=== PATIENT | female | born 1970 | race Caucasian/White ===

== ENCOUNTER → 2020-02-13 11:48 | Outpatient (CLI) | payer BC, SELFPAY ==
--- NOTE | ~2020-02-13 | MM_ITS ---
EXAMINATION: MM screening [facility] BI [facility] [place] HISTORY: Screening TECHNIQUE: Craniocaudal and mediolateral oblique 3-D tomosynthesis images were obtained and synthetic 2-D images were generated. CAD analysis was submitted and interpreted. COMPARISON: Comparison to multiple prior studies sequentially, with oldest reviewed study dated 01/28. BREAST PARENCHYMAL COMPOSITION: There are scattered areas of fibroglandular density. FINDINGS: There is no evidence of suspicious mass, calcification, or architectural distortion to sugg est malignancy in either breast. There has been no suspicious interval change. IMPRESSION: 1. No mammographic evidence of malignancy. 2. Recommend routine screening mammography in one year. BI-RADS Category 1: Negative Reviewed, dictated and finalized at location A.
== END ==
PROVIDERS: PCP Nurse Practitioner Family; Visit Provider Nurse Practitioner
DX: Z12.31 Encounter for screening mammogram for malignant neoplasm of breast (principal)
CPT/HCPCS: 77063; 77067

== ENCOUNTER → 2021-03-18 17:20 | Outpatient (CLI) | payer BC, SELFPAY ==
--- NOTE | ~2021-03-18 | MM_ITS ---
EXAMINATION: MM screening [facility] [place] HISTORY: Screening mammogram TECHNIQUE: Craniocaudal and mediolateral oblique 3-D tomosynthesis images were obtained and synthetic 2-D images were generated. CAD analysis was submitted and interpreted. COMPARISON: 02/13/2020, 08/22/2018, 08/16/2017 BREAST PARENCHYMAL COMPOSITION: There are scattered areas of fibroglandular density. FINDINGS: There is no evidence of suspicious mass, calcification, or architectural distortion to sugg est malignancy in either breast. There has been no suspicious interval change. IMPRESSION: 1. No mammographic evidence of malignancy. 2. Recommend routine screening mammography in one year. BI-RADS Category 1: Negative Reviewed, dictated and finalized at location A. SH SANDER
== END ==
PROVIDERS: PCP Nurse Practitioner Family; Visit Provider Nurse Practitioner
DX: Z12.31 Encounter for screening mammogram for malignant neoplasm of breast (principal)
CPT/HCPCS: 77063; 77067

== ENCOUNTER → 2021-12-21 14:01 | Outpatient (CLI) | payer BC, SELFPAY ==
--- NOTE | ~2021-12-21 | XR_ITS ---
EXAMINATION: XR knee LT min 4V, XR knee RT min 4V DATE: 12/21/2021 14:18 INDICATION: Bilateral knee pain TECHNIQUE: 1. AP, lateral and sunrise views of the left knee were obtained. 2. AP, lateral and sunrise views of the right knee were obtained. COMPARISON: None. FINDINGS: No fractures. Relatively symmetric advanced medial compartment predominant osteoarthritis at the bila teral knees with severe joint space narrowing and remodeling of the articular surfaces at the medial compartments of both knees. This results in relative symmetric mild lateral subluxation as well as 10 degrees genu valgus. There is additional lateral sided predominant joint space narrowing at the bila teral patellofemoral compartments and moderate size marginal osteophytes in all 3 compartments of bot h knees. No knee joint effusions. Subcutaneous varicosities along the medial aspect of the bilateral distal thighs to the proximal calves. IMPRESSION: 1. L3 symmetric advanced medial compartment predominant tricompartmental osteoarthritis at both knees . Reviewed, dictated and finalized at location A. IMPRESSION: 1. L3 symmetric advanced medial compartment predominant tricompartmental osteoa rthritis at both knees.
== END ==
PROVIDERS: PCP Nurse Practitioner Family; Visit Provider Nurse Practitioner Family
DX: M25.561 Pain in right knee (principal); M25.562 Pain in left knee
CPT/HCPCS: 73564

== ENCOUNTER → 2022-02-17 08:15 | Outpatient (CLI) | payer BC, SELFPAY ==
--- NOTE | ~2022-02-17 | MMUS_ITS ---
EXAMINATION: MM diagnostic [facility] [place], US breast RT limited HISTORY: Palpable right breast lump TECHNIQUE: Additional 3-D tomosynthesis images of the right breast were performed and synthetic 2-D i mages were generated. CAD analysis was submitted and interpreted. High resolution Limited right breas t ultrasound was performed. COMPARISON: 06/26/2015 BREAST PARENCHYMAL COMPOSITION: Breast composed of scattered areas of fibroglandular density FINDINGS: MAMMOGRAPHIC FINDINGS: There is no mammographic evidence for malignancy in the left breast which is stable. There is a new f ocal asymmetry in the upper outer quadrant of the right breast which is obscured by fibroglandular ti ssue. ULTRASOUND: Limited right breast ultrasound: At 12:00, 7 cm from the nipple there is a 4 mm cyst. There is also a 6 mm cyst at this location. No suspicious masses to suggest malignancy. IMPRESSION: 1. No evidence for malignancy in either breast. Benign findings. 2. Routine yearly screening mammogram and regular clinical breast examination are recommended. BI-RADS Category 2: Benign finding(s). Reviewed, dictated and finalized at location A. IMPRESSION: 1. No evidence for malignancy in either breast. Benign findings. 2. Routine yearly screening mammogram and regular clinical breast examination a re recommended. BI-RADS Category 2: Benign finding(s).
== END ==
PROVIDERS: PCP Nurse Practitioner Family; Visit Provider Advanced Practice Midwife
DX: N63.10 Unspecified lump in the right breast, unspecified quadrant (principal)
CPT/HCPCS: 76642; 77062; 77066; G0279

== ENCOUNTER 2022-09-11 01:16 | Day surgery (SDC) | payer BC, SELFPAY ==
[2022-08-29 15:34] VITALS: BMI 50.3
--- NOTE | 2022-09-09 10:48 | PM.HPGS ---
History of Present Illness History of Present Illness Consent: Risks, benefits, and alternatives have been discussed and questions answered. Patient agrees to proceed with procedure. Chief complaint: hx of colon polyps Narrative: Denisha Bailey is a 52 year old female Referred for colon cancer screening.she has hx of polyps. Review of Systems Review of Systems: All systems reviewed & are unremarkable except as noted in HPI and below PMFSH Past Medical History Medical History Diabetes mellitus HTN (hypertension) Surgical History Surgical History H/O removal of cyst Family History Family History Mother Cerebrovascular accident Family history of diabetes mellitus in first degree relative Family history of seizure disorder Father Family history of kidney disease Family history of diabetes mellitus in first degree relative Family history of heart disease in male family member before age 55 Social History Social History Smoking status: Never smoker Alcohol intake: current Alcohol use details: occasional Substance use: never Substance use type: does not use Living arrangements: alone Gender identity (if verbalized by the patient): Female Spiritual care concerns: No Meds Home Medications and Allergies Home Medications Medication Instructions Recorded Confirmed Type cholecalciferol (vitamin D3) 10 400 unit PO DAILY #60 caps 03/26/19 08/29/22 Rx mcg (400 unit) capsule insulin glargine 100 unit/mL (3 15 unit (0.15 mL) subcut DAILY #15 04/09/19 08/29/22 Rx mL) subcutaneous pen (Lantus mL Solostar U-100 Insulin) pen needle, diabetic 31 gauge x #50 ea 04/09/19 05/12/19 Rx 1/4 (Easy Comfort Pen [place]) atorvastatin 40 mg tablet See Rx Instructions .Route 11/03/19 08/29/22 Rx .COMPLEX ##30 glimepiride 4 mg tablet See Rx Instructions .Route 11/03/19 08/29/22 Rx .COMPLEX ##60 lisinopril 20 mg tablet 20 mg PO DAILY #90 tabs 01/16/20 08/29/22 Rx dulaglutide 4.5 mg/0.5 mL 4.5 mg subcut WEEKLY 08/29/22 08/29/22 History subcutaneous pen injector (Trulicity) meloxicam 15 mg tablet 15 mg PO DAILY 08/29/22 08/29/22 History metformin 500 mg tablet,extended 500 mg PO BID 08/29/22 08/29/22 History release 24 hr paroxetine HCl 10 mg tablet 10 mg PO DAILY 08/29/22 08/29/22 History Allergies Allergy/AdvReac Type Severity Reaction Status Date / Time cefaclor Allergy Unknown Unknown Verified 09/11/22 07:43 Penicillins Allergy Unknown Unknown Verified 09/11/22 07:43 Exam Resp: Auscultation: clear to auscultation bilaterally Cardio: Rate: regular rate Rhythm: regular rhythm GI: GI Palp: Yes Soft to palpation and No Tenderness to palpation present (GI) Assessment and Plan Assessment and plan (1) Colon cancer screening: Code(s): Z12.11 - Encounter for screening for malignant neoplasm of colon Status: Resolved Assessment and Plan: Colonoscopy with possible biopsy or polypectomy or cautery or injection of substances.
[2022-09-11 07:44] VITALS: BP 102/73; PULSE 92; RESP 18; TEMP 36.1; O2SAT 97
[2022-09-11] MEDS: LACTATED RINGERS 1,000 ML 150 ML IV CONT (08:02)
[2022-09-11 08:03] LABS: Glucose Point of Care 163 mg/dl (65-105)
--- NOTE | 2022-09-11 08:56 | WPDANESEPPF ---
Anes - Initial Pre Proc Eval Procedure: Operation Date: 09/11/22 09:00 Proposed Procedures p Colonoscopy - Devang Dubose MD Date/Time: 09/11/22 08:56 Surgeon: Devang Dubose MD Pre Op Diagnosis: hx of colon polyps Patient Data Age: 52 Gender: F Height: 1.57 m Weight: 114.8 kg Last Vital Signs Temp 97 F L 09/11/22 07:44 Pulse 92 09/11/22 07:44 Resp 18 09/11/22 07:44 BP 102/73 09/11/22 07:44 Pulse Ox 97 09/11/22 07:44 O2 Del Method Room Air 09/11/22 07:44 Allergies Allergy/AdvReac Type Severity Reaction Status Date / Time cefaclor Allergy Unknown Unknown Verified 09/11/22 07:43 Penicillins Allergy Unknown Unknown Verified 09/11/22 07:43 Home Medications Medication Instructions Recorded Confirmed Type cholecalciferol (vitamin D3) 10 400 unit PO DAILY #60 caps 03/26/19 08/29/22 Rx mcg (400 unit) capsule insulin glargine 100 unit/mL (3 15 unit (0.15 mL) subcut DAILY #15 04/09/19 08/29/22 Rx mL) subcutaneous pen (Lantus mL Solostar U-100 Insulin) pen needle, diabetic 31 gauge x #50 ea 04/09/19 05/12/19 Rx 1/4 (Easy Comfort Pen [place]) atorvastatin 40 mg tablet See Rx Instructions .Route 11/03/19 08/29/22 Rx .COMPLEX ##30 glimepiride 4 mg tablet See Rx Instructions .Route 11/03/19 08/29/22 Rx .COMPLEX ##60 lisinopril 20 mg tablet 20 mg PO DAILY #90 tabs 01/16/20 08/29/22 Rx dulaglutide 4.5 mg/0.5 mL 4.5 mg subcut WEEKLY 08/29/22 08/29/22 History subcutaneous pen injector (Trulicity) meloxicam 15 mg tablet 15 mg PO DAILY 08/29/22 08/29/22 History metformin 500 mg tablet,extended 500 mg PO BID 08/29/22 08/29/22 History release 24 hr paroxetine HCl 10 mg tablet 10 mg PO DAILY 08/29/22 08/29/22 History Laboratory Tests 09/11/22 08:01 POC Capillary Glucose 163 H mg/dl (65-105) Patient hx anesthesia problems: none Family hx anesthesia problems: none Results Review: All pre-operative results and documents have been reviewed as part of the pre-operative evaluation. [facility] Past Medical History Medical History (Updated 05/13/19 @ 00:01 by Renetta Lorenzo) Diabetes mellitus HTN (hypertension) Surgical History Surgical History (Updated 05/12/19 @ 17:04 by Valarie Rose) H/O removal of cyst Family History Family History Mother Cerebrovascular accident Family history of diabetes mellitus in first degree relative Family history of seizure disorder Father Family history of kidney disease Family history of diabetes mellitus in first degree relative Family history of heart disease in male family member before age 55 Social History Social History Smoking status: Never smoker Alcohol intake: current Alcohol use details: occasional Substance use: never Substance use type: does not use Living arrangements: alone Gender identity (if verbalized by the patient): Female Spiritual care concerns: No Anes - Eval Final PreProcedure Day of Procedure 09/11/22 08:56 Patient weight: morbidly obese Heart: regular rate and rhythm Lungs: clear to auscultation Airway: Mallampati scale class II Neurological: alert and oriented Last oral intake: >/= 8 hours ASA classification: III Emergent: no Anesthetic plan: proceed Anesthesia type and monitoring: general GIVS and standard monitoring Results Review: All pre-operative results and documents have been reviewed as part of the pre-operative evaluation. Informed Consent: The patient's anesthetic plan and its attendant risks and benefits were discussed with the patient/family/POA. Questions were solicited and answers provided to the satisfaction of the patient/family/POA.
[2022-09-11 09:43] VITALS: BP 83/48; PULSE 89; RESP 28; O2SAT 96
[2022-09-11 09:51] LABS: Glucose Point of Care 136 mg/dl (65-105)
[2022-09-11 09:53] VITALS: BP 81/43; PULSE 85; RESP 26; O2SAT 98
[2022-09-11 10:03] VITALS: BP 119/67; PULSE 79; RESP 18; O2SAT 99
== END 2022-09-11 10:10 | disposition home or self-care (01) ==
PROVIDERS: PCP Nurse Practitioner Family; Visit Provider Internal Medicine Gastroenterology
PROC: 0DJD8ZZ Inspection of Lower Intestinal Tract, Via Natural or Artificial Opening Endoscopic (ICD-10-PCS; CPT 45378; principal; 2022-09-11 09:00)
DX: Z12.11 Encounter for screening for malignant neoplasm of colon (principal); Z86.010 Personal history of colon polyps; E11.9 Type 2 diabetes mellitus without complications; I10 Essential (primary) hypertension; Z79.4 Long term (current) use of insulin; Z79.84 Long term (current) use of oral hypoglycemic drugs; Z79.899 Other long term (current) drug therapy; E66.01 Morbid (severe) obesity due to excess calories; Z68.42 Body mass index [BMI] 45.0-49.9, adult
CPT/HCPCS: 45378; 82948; J2704; J7120

== ENCOUNTER → 2023-04-20 09:55 | Outpatient (CLI) | payer BC, SELFPAY ==
--- NOTE | ~2023-04-20 | MM_ITS ---
EXAMINATION: MM screening [facility] [place] HISTORY: Screening TECHNIQUE: Craniocaudal and mediolateral oblique 3-D tomosynthesis images were obtained and synthetic 2-D images were generated. CAD analysis was submitted and interpreted. COMPARISON: Comparison to multiple prior studies sequentially, with oldest reviewed study dated 08/22. BREAST PARENCHYMAL COMPOSITION: There are scattered areas of fibroglandular density. FINDINGS: There is no evidence of suspicious mass, calcification, or architectural distortion to sugg est malignancy in either breast. There has been no suspicious interval change. IMPRESSION: 1. No mammographic evidence of malignancy. 2. Recommend routine screening mammography in one year. BI-RADS Category 1: Negative Reviewed, dictated and finalized at location A. ICAL DETECTION EXPERT
== END ==
PROVIDERS: PCP Nurse Practitioner; Visit Provider Nurse Practitioner
DX: Z12.31 Encounter for screening mammogram for malignant neoplasm of breast (principal)
CPT/HCPCS: 77063; 77067

== ENCOUNTER 2023-06-01 12:47 | Emergency (ER) | payer BC, SELFPAY ==
--- NOTE | 2023-06-01 13:02 | ED.GENADULT ---
HPI - General Adult General Chief complaint: Upper Respiratory Infection Stated complaint: vomiting,headache Time Seen by Provider: 06/01/23 13:02 Source: patient, RN notes reviewed and old records reviewed Mode of arrival: ambulatory Limitations: no limitations History of Present Illness HPI narrative: 53-year-old female presents to the [facility] with complaints of last , Sunday and Sunday started with cough and congestion. States that she felt better Sunday through , last night started with generalized not feeling well. Patient states that she woke up this morning with nausea, vomiting, headache. States that it feels like she is in a tunnel. States that she was unable to get out of bed this morning due to body aches, coughing, vomiting Has not checked her blood sugar States that she is unable to keep any fluids down Here she has a low-grade fever and is tachycardic Treatments prior to arrival: other (Sudafed) Related Data Home Medications Medication Instructions Recorded Confirmed meloxicam 15 mg tablet 15 mg PO DAILY 08/29/22 08/29/22 metformin 500 mg tablet,extended 500 mg PO BID 08/29/22 08/29/22 release 24 hr paroxetine HCl 10 mg tablet 10 mg PO DAILY 08/29/22 08/29/22 semaglutide 2 mg/dose (8 mg/3 mL) mg subcut 06/01/23 subcutaneous pen injector (Ozempic) Allergies Allergy/AdvReac Type Severity Reaction Status Date / Time cefaclor Allergy Unknown Unknown Verified 06/01/23 13:04 Penicillins Allergy Unknown Unknown Verified 06/01/23 13:04 Review of Systems Review of Systems: All systems reviewed & are unremarkable except as noted in HPI and below Constitutional: Constitutional: Reports as per HPI, Reports body ache(s), Reports fatigue, Reports fever(s) and Reports headache(s) Eyes: Eyes: Reports no additional eye complaints ENT: Reports as per HPI Cardiovascular: Cardiovascular: Reports no additional cardiovascular complaints, Denies chest pain and Denies dyspnea Respiratory: Respiratory: Reports as per HPI, Reports chest congestion, Reports cough and Denies dyspnea Gastrointestinal: Gastrointestinal: Reports no additional gastrointestinal complaints, Denies abdominal pain, Denies nausea and Denies vomiting Musculoskeletal: Musculoskeletal: Reports no additional musculoskeletal complaints Integumentary/Breasts: Skin/Breast: Reports system reviewed and no additional complaints, except as docu Neurologic: Reports system reviewed and no additional complaints, except as documented Psychiatric: Psychiatric: Reports no additional psychiatric complaints Allergic/Immunologic: Allergic/Immunologic: Reports no additional allergic/immunologic complaints [facility] Past Medical History Medical History (Updated 06/01/23 @ 13:26 by Gem Morgan APRN) Benign essential hypertension Depression Diabetes mellitus HTN (hypertension) Mixed hyperlipidemia Type 2 diabetes mellitus without complication, without long-term current use of insulin Surgical History Surgical History H/O removal of cyst Family History Family History Mother Cerebrovascular accident Family history of diabetes mellitus in first degree relative Family history of seizure disorder Father Family history of kidney disease Family history of diabetes mellitus in first degree relative Family history of heart disease in male family member before age 55 Social History Social History Smoking status: Never smoker Alcohol intake: current Alcohol use details: occasional Substance use: never Substance use type: does not use Living arrangements: alone Gender identity (if verbalized by the patient): Female Spiritual care concerns: No Comments At the time of my signature, I reviewed and agree with the nursing past medical, surgical, social, and fa
[2023-06-01 13:03] VITALS: BP 137/75; PULSE 132; RESP 20; TEMP 38.3; O2SAT 96
[2023-06-01 13:05] VITALS: BP 137/75; PULSE 132; RESP 20; TEMP 38.3; O2SAT 96
[2023-06-01 13:12] LABS: Glucose Point of Care 321 mg/dl (65-105)
== END 2023-06-01 13:16 | disposition short-term general hospital (02) ==
PROVIDERS: Emergency Provider Nurse Practitioner
DX: J10.1 Influenza due to other identified influenza virus with other respiratory manifestations (principal); E11.65 Type 2 diabetes mellitus with hyperglycemia; I10 Essential (primary) hypertension; E78.2 Mixed hyperlipidemia; Z20.822 Contact with and (suspected) exposure to COVID-19
CPT/HCPCS: 82948; 87426; 87804; 99213; G0463

== ENCOUNTER 2023-06-01 13:36 | Emergency (ER) | payer BC, SELFPAY ==
[2023-06-01 13:54] VITALS: BP 125/82; PULSE 130; RESP 20; TEMP 37.6; O2SAT 96
--- NOTE | 2023-06-01 13:58 | PC.NURSE ---
BS 290
[2023-06-01 14:01] LABS: Glucose Point of Care 290 mg/dl (65-105)
--- NOTE | 2023-06-01 20:07 | ECG_ITS ---
Measurements Intervals [place] Rate: 124 P: 52 NE: 166 QRS: 33 QRSD: 82 T: 30 QT: 316 QTc: 454 Interpretive Statements SINUS TACHYCARDIA Electronically Signed On 06-02-2023 12:29:29 PERIOPERATIVE ASSISTANT by Manpreet Avery M.D.
[2023-06-01 20:31] LABS: Fractional Inspired Oxygen 21 %; HCO3 VBG 22.8 mEq/l (24.0-30.0); PCO2 VBG 37.8 mmHg (42.0-48.0); PO2 VBG 30.5 mmHg (35.0-45.0); pH VBG 7.399 (7.300-7.400)
[2023-06-01 20:32] LABS: Device ROOM AIR
[2023-06-01 20:38] LABS: Basophils Absolute Auto 0.1 K/mm3 (0.0-0.1); Basophils Percent Auto 0.6 % (0.2-1.2); Eosinophils Percent Auto 0.3 % (0-4.4); Hematocrit 46.6 % (37.0-47.0); Immature Granulocyte Absolute 0.07 K/mm3 (0.00-0.031); Immature Granulocyte Percent A 0.6 % (0-0.5); Lymphocytes Absolute Auto 0.57 K/mm3 (0.9-3.2); Lymphocytes Percent Auto 4.8 % (18.3-44.2); Mean Corpuscular HGB Conc 32.2 g/dl (32-36); Mean Corpuscular Hemoglobin 30.8 pg (26-34); Mean Corpuscular Volume 95.7 fl (80-100); Mean Platelet Volume 9.6 fl (7.4-10.4); Monocytes Absolute Auto 0.9 K/mm3 (0.1-0.6); Monocytes Percent Auto 7.9 % (2.6-8.5); Neutrophils Absolute Auto 10.3 K/mm3 (1.3-6.7); Neutrophils Percent Auto 85.8 % (45.5-73.1); Platelet Count Result 210 k/mm3 (150-375); Red Blood Count 4.87 M/mm3 (4.2-5.4); Red Cell Distribution Width 12.2 % (11.5-14.5)
[2023-06-01 20:56] LABS: Alanine Aminotransferase 40 U/L (6-35); Albumin Level 4.2 g/dL (3.5-5.1); Alkaline Phosphatase 121 U/L (38-126); Anion Gap 12 mmol/L (8-16); Aspartate Amino Transferase 37 U/L (14-36); Bilirubin,Total 0.7 mg/dL (0.2-1.3); Blood Urea Nitrogen 17 mg/dL (7-17); Calcium 9.2 mg/dL (8.4-10.2); Carbon Dioxide 23 mmol/L (22-30); Chloride 100 mmol/L (98-107); Estimated CRCL calculation 74 ml/min; Estimated Glomerular Filt Rate > 60; Glucose 231 mg/dL (65-110); Potassium 3.9 mmol/L (3.4-5.0); Sodium 135 mmol/L (137-145)
--- NOTE | 2023-06-01 21:01 | ED.GENADULT ---
HPI - General Adult General Chief complaint: Nausea/Vomiting/Diarrhea Stated complaint: Flu positive, generalized weakness Time Seen by Provider: 06/01/23 19:38 Source: patient Mode of arrival: ambulatory Limitations: no limitations History of Present Illness HPI narrative: This is a 53-year-old female with PMH of insulin-dependent diabetes who presents to the ED with chief complaint of flu-like symptoms and N/V for the past couple of days. Reports being diagnosed with flu at urgent care but she has been very dehydrated with the episodes of vomiting. They were concerned because her sugars are near 300 and felt that she needed IV rehydration. patient states the nausea is somewhat improved and was able to drink some water while in the waiting room. Denies abdominal pain, urinary problems, chest pain, shortness of breath or cough. Related Data Home Medications Medication Instructions Recorded Confirmed meloxicam 15 mg tablet 15 mg PO DAILY 08/29/22 08/29/22 metformin 500 mg tablet,extended 500 mg PO BID 08/29/22 08/29/22 release 24 hr paroxetine HCl 10 mg tablet 10 mg PO DAILY 08/29/22 08/29/22 semaglutide 2 mg/dose (8 mg/3 mL) mg subcut 06/01/23 subcutaneous pen injector (Ozempic) Allergies Allergy/AdvReac Type Severity Reaction Status Date / Time cefaclor Allergy Unknown Unknown Verified 06/01/23 13:04 Penicillins Allergy Unknown Unknown Verified 06/01/23 13:04 Review of Systems Review of Systems: All systems as dictated in HPI [facility] Past Medical History Medical History (Updated 06/02/23 @ 00:01 by Renetta Lorenzo) Benign essential hypertension Depression Diabetes mellitus HTN (hypertension) Mixed hyperlipidemia Type 2 diabetes mellitus without complication, without long-term current use of insulin Surgical History Surgical History H/O removal of cyst Family History Family History Mother Cerebrovascular accident Family history of diabetes mellitus in first degree relative Family history of seizure disorder Father Family history of kidney disease Family history of diabetes mellitus in first degree relative Family history of heart disease in male family member before age 55 Social History Social History Smoking status: Never smoker Alcohol intake: current Alcohol use details: occasional Substance use: never Substance use type: does not use Living arrangements: alone Gender identity (if verbalized by the patient): Female Spiritual care concerns: No Exam Narrative: GENERAL: Well-appearing, well-nourished, and in no acute distress. HEAD: Normocephalic, atraumatic. EYES: PERRLA and EOMI. ENT: Nares clear, no rhinorrhea or epistaxis. Mucous membranes moist. Oropharynx without tonsillar hypertrophy exudate or other lesions. NECK: Supple. No adenopathy or masses. CHEST: No respiratory distress. Clear to auscultation. No wheezes rales or rhonchi HEART: Regular rate and rhythm. No murmur heard. Normal peripheral pulses. ABDOMEN: Soft, nontender, nondistended, normal active bowel sounds. MSK: Normal range of motion. No edema. SKIN: Warm, dry, no rash. NEURO: Alert and oriented x3. No focal deficits. PSYCH: Normal mood and affect. Course Vital Signs Vital signs: Vital Signs Temperature 99.6 F 06/01/23 13:54 Pulse Rate 130 H 06/01/23 13:54 Respiratory Rate 20 06/01/23 13:54 Blood Pressure 125/82 06/01/23 13:54 Pulse Oximetry 96 06/01/23 13:54 Oxygen Delivery Room Air 06/01/23 13:54 Temperature 98.1 F 06/01/23 22:02 Pulse Rate 75 06/01/23 22:02 Respiratory Rate 18 06/01/23 22:02 Blood Pressure 124/81 06/01/23 22:02 Pulse Oximetry 95 06/01/23 22:02 Oxygen Delivery Room Air 06/01/23 13:54 Medical Decision Making MDM Narrative Medical deci
[2023-06-01] MEDS: SODIUM CHLORIDE 0.9% IV 1,000 ML 999 ML IV CONT ×2 (21:02→21:03)
[2023-06-01] MEDS: ONDANSETRON INJ 4 MG/2 ML VIAL IV PUSH (21:03)
[2023-06-01 21:16] VITALS: BP 109/61; O2SAT 93
[2023-06-01 21:46] VITALS: BP 113/64; O2SAT 90
[2023-06-01] MEDS: KETOROLAC 30 MG/ML VIAL (*BKC) (21:50)
[2023-06-01 22:02] VITALS: BP 124/81; PULSE 75; RESP 18; TEMP 36.7; O2SAT 95
[2023-06-01 22:40] LABS: Glucose Point of Care 191 mg/dl (65-105)
== END 2023-06-01 22:55 | disposition home or self-care (01) ==
PROVIDERS: Emergency Provider Physician Assistant; PCP Nurse Practitioner Family
DX: J11.2 Influenza due to unidentified influenza virus with gastrointestinal manifestations (principal); I10 Essential (primary) hypertension; E11.9 Type 2 diabetes mellitus without complications; E78.5 Hyperlipidemia, unspecified; Z79.85 Long-term (current) use of injectable non-insulin antidiabetic drugs; Z79.84 Long term (current) use of oral hypoglycemic drugs; R00.0 Tachycardia, unspecified
CPT/HCPCS: 36415; 80053; 82010; 82803; 82948; 85025; 87426; 87804; 93005; 96361; 96374; 96375; 99284; J1885; J2405; J7030

== ENCOUNTER 2023-10-30 07:30 | Outpatient (RCR) | payer BC, SELFPAY ==
--- NOTE | 2023-10-11 08:10 | PTOPEVAL1 ---
Assessment and note entered by Francesco Basilio Evaluation Information Assessment Status Evaluation Diagnosis bilateral primary OA of bilateral knees, bilateral knee pain Onset 09/18/23 Subjective Information Pt. reports she has had years of knee pain. She reports that she recently saw the ortho who stated that she is likely a knee replacement candidate. She states that she is taking a trip in October and trying to hold off on any surgery. She reports that pain is only noticed with walking. She reports that she can only stand for a few minutes before having to sit due to her pain. She describes pain on the inside of the knee joints. She reports she cannot squat or kneel. 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 She reports that she did receive a cortisone injection 1 month ago, which did ease her pain. She states that stairs are difficult and has to navigate steps 1 at a time. She reports she is currently attempting weight lose. 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 She reports that her goal is to be able to walk for a longer duration so she can participate in recreational activities. Reported Pain Level Pain Score 7,5: Self Report Assessment PT Clinical Summary Pt. is a 53 year old female who enters the clinic with a diagnosis of bilateral knee pain. She presents with impaired gait, impaired flexibility, impaired bilateral knee ROM, functional decline and pain on this date. Continued skilled PT is indicated in order to improve these areas to allow the pt. to achieve her goal of being able to walk over a further distance. Plan of Care Interventions Electrical Stimulation,Gait Training,Hot Pack/Cold Pack,Manual Therapy,Neuro Re-education,Patient/ Caregiver Educati,Therapeutic Activities, Therapeutic Exercise PT Services Indicated Yes Treatment Frequency and 2x/week x 8 visits Duration These treatments will address the objective and functional deficits as defined above. The patient will be advanced safely and appropriately in order for the patient to progress towards his/her prior level of function. Additional exercises will be introduced and as well as a comprehensive home exercise program upon discharge, if needed, ?to ensure carryover of functional gains achieved in the clinic. This treatment plan has been reviewed and agreement upon by the patient.
--- NOTE | 2023-10-11 08:20 | OPREHPOC ---
Outpatient Therapy Plan of Care This is a Multidisciplinary Plan of Care that may contain components documented by all disciplines (PT, OT, and ST.) PT Problem 1 PT Problem #1 Knowledge Deficit PT Goal 1 Goal Pt. will be independent with a HEP focused on ROM denominational and l.e. strength Target Visit 2 PT Problem 2 PT Problem #2 Impaired Range of Motion PT Goal 1 Goal Pt. will achieve 0-115 degrees or greater of bilateral knee joint active ROM to assist with improve stair navigation. Target Visit 8 PT Problem 3 PT Problem #3 Impaired Strength PT Goal 1 Goal Pt. will present with hip abduction strength at 4+ /5 or greater to improve gait mechanics. Target Visit 8 PT Problem 4 PT Problem #4 Impaired Functional Mobil PT Goal 1 Goal Pt. will report being able to complete a daily walking regimen for at least 20 minutes with knee pain at 4/10 at worst Target Visit 8
--- NOTE | 2023-12-27 12:08 | PCPTNOTE ---
Mrs. Bailey attended a total of 5 treatment sessions. During her last session knee pain was reported at 4/10 with improvements noted in ROM. She participated in therapeutic exercise and gait training procedures, as well as manual techniques to reduce pain. She has failed to show since her last appointment on 10/30/23. At this time she will be discharged from our care. Thank you for the referral of this patient. Francesco Basilio, MPT
== END 2023-12-27 12:44 | disposition home or self-care (01) ==
LOC: ANHPT 07:30
PROVIDERS: PCP Nurse Practitioner Family; Visit Provider Orthopaedic Surgery
DX: M17.0 Bilateral primary osteoarthritis of knee (principal)
CPT/HCPCS: 97110; 97140; 97161; 97530

== ENCOUNTER 2023-11-07 08:10 | Emergency (ER) | payer BC, SELFPAY ==
[2023-11-07 08:21] VITALS: BP 109/61; PULSE 100; RESP 20; TEMP 36.5; O2SAT 98
[2023-11-07 08:23] VITALS: BP 109/61; PULSE 100; RESP 20; TEMP 36.5; O2SAT 98
--- NOTE | 2023-11-07 08:44 | ED.SKABFB ---
HPI - Skin/Abscess/Foreign Bdy General Chief complaint: Skin/Abscess/Foreign Body Stated complaint: Abcess on Finger Time Seen by Provider: 11/07/23 08:44 Source: patient Mode of arrival: ambulatory Limitations: no limitations History of Present Illness HPI narrative: 53-year-old female presents with complaint redness swelling, pain to left middle finger. Symptoms for 2 days. Patient had a manicure 4 days ago. All Systems reviewed negative except as noted. Related Data Allergies Allergy/AdvReac Type Severity Reaction Status Date / Time cefaclor Allergy Unknown Unknown Verified 11/07/23 08:22 Penicillins Allergy Unknown Unknown Verified 11/07/23 08:22 Review of Systems Review of Systems: CONSTITUTIONAL: Denies fever, chills, or sweats. EYES: Denies visual changes, redness, or discharge. ENT: Denies rhinorrhea, congestion, sore throat, or otalgia. CARDIOVASCULAR: Denies chest pain, palpitations, or edema. RESPIRATORY: Denies cough or dyspnea. GASTROINTESTINAL: Denies abdominal pain, nausea, vomiting, or diarrhea. GENITOURINARY: Denies dysuria or hematuria. SKIN: Reports redness swelling tenderness to left middle finger. MUSCULOSKELETAL: Denies back pain, joint pain, or myalgia. NEUROLOGIC: Denies headache, numbness, or weakness. PSYCHIATRIC: Denies anxiety or depression. All other systems reviewed are negative, except as documented in HPI. [facility] Past Medical History Medical History Benign essential hypertension Depression Diabetes mellitus HTN (hypertension) Hyperlipidemia Mixed hyperlipidemia Neuropathy Osteoarthritis Type 2 diabetes mellitus without complication, without long-term current use of insulin Surgical History Surgical History H/O removal of cyst History of tonsillectomy Family History Family History Mother Family history of diabetes mellitus in first degree relative Family history of seizure disorder Hypertension Heart disease Hypothyroidism Father Family history of diabetes mellitus in first degree relative Family history of heart disease in male family member before age 55 Sibling Diabetes mellitus Depression Grandparent Diabetes mellitus Social History Social History Smoking status: Never smoker Alcohol intake: current Drinks per week: 3 Alcohol use details: occasional Substance use: never Substance use type: does not use Do You Feel Safe in your Home?: Yes Lack of Transportation: No Lack of Food: Never True Current Housing: I Have Housing Concerned About Future Housing: No Difficulty Paying Gas/Electric Bills: No Difficulty Paying for Meds: No Currently Unemployed: No Education: High School Diploma/GED Difficulty w/ Childcare or Family Care: No Living arrangements: alone Occupation/Education: occupation Additional occupation/education comments: 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 There is no relevant family history pertinent to the presenting complaint. Exam Narrative: GENERAL: This is a well-nourished, well-developed patient, in no apparent distress. HEAD: normocephalic, atraumatic. EYES: PERRL. Sclera clear/white. Vision is grossly intact. EARS: External ears normal NOSE: External nose normal NECK: Neck supple, non-tender without lymphadenopathy, masses or thyromegaly. CARDIOVASCULAR: Regular rate and rhythm without murmurs, gallops, or rubs. RESPIRATORY: Clear to auscultation. Breath sounds equal bilaterally. No wheezes, rales, or rhonchi. SKIN: warm, Dry, intact with no suspicious le
== END 2023-11-07 08:40 | disposition home or self-care (01) ==
PROVIDERS: Emergency Provider Nurse Practitioner Family; PCP Nurse Practitioner Family
DX: L03.012 Cellulitis of left finger (principal); I10 Essential (primary) hypertension; E78.2 Mixed hyperlipidemia; E11.40 Type 2 diabetes mellitus with diabetic neuropathy, unspecified; M19.90 Unspecified osteoarthritis, unspecified site
CPT/HCPCS: 10060; 99213; G0463

== ENCOUNTER 2024-05-17 09:03 | Emergency (ER) | payer BC, SELFPAY ==
[2024-05-17 09:09] VITALS: BP 134/79; PULSE 109; RESP 16; TEMP 36.7; O2SAT 99
[2024-05-17 09:14] VITALS: PULSE 80; RESP 18; O2SAT 98
--- NOTE | 2024-05-17 10:48 | ED.DENTAL ---
HPI - Dental/Oral General Chief complaint: Dental/Oral Stated complaint: L. side facial swelling since yesterday am Time Seen by Provider: 05/17/24 09:53 Source: patient Mode of arrival: ambulatory Limitations: no limitations History of Present Illness HPI Narrative: This is a 54-year-old female, with history of diabetes, presents emergency department complaining of left-sided facial pain and swelling for the past 3 days. The patient states her pain is dull, rated 7/10 worse with chewing. She notes in the past day the left cheek has become swollen. She denies drainage any abnormal fluid fevers, difficulty breathing or difficulty swallowing. She has no other complaints at this time. Related Data Allergies Allergy/AdvReac Type Severity Reaction Status Date / Time cefaclor Allergy Unknown Unknown Verified 05/17/24 09:11 Penicillins Allergy Unknown Unknown Verified 05/17/24 09:11 Review of Systems Review of Systems: All systems reviewed & are unremarkable except as noted in HPI and below PMFSH Past Medical History Medical History Hyperlipidemia Osteoarthritis Neuropathy Diabetes mellitus HTN (hypertension) Benign essential hypertension Depression Mixed hyperlipidemia Type 2 diabetes mellitus without complication, without long-term current use of insulin Surgical History Surgical History History of tonsillectomy H/O removal of cyst Family History Family History Mother Family history of diabetes mellitus in first degree relative Family history of seizure disorder Hypertension Heart disease Hypothyroidism Father Family history of diabetes mellitus in first degree relative Family history of heart disease in male family member before age 55 Sibling Diabetes mellitus Depression Grandparent Diabetes mellitus Social History Social History Smoking status: Never smoker Alcohol intake: current Drinks per week: 3 Alcohol use details: occasional Substance use: never Substance use type: does not use Current Housing: Decline to Answer Concerned About Future Housing: Decline to Answer Difficulty Paying Gas/Electric Bills: Decline to Answer Difficulty Paying for Meds: Decline to Answer Currently Unemployed: Decline to Answer Education: Decline to Answer Difficulty w/ Childcare or Family Care: Decline to Answer Living arrangements: alone Occupation/Education: occupation 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 HEAD: Normocephalic, atraumatic. EYES: PERRLA and EOMI. ENT: There is erythema and swelling noted at the base of tooth number 11 with tenderness to palpation. There is swelling noted in the soft tissue of the left cheek without purulent drainage noted at the parotid gland os. Nares clear, no rhinorrhea or epistaxis. Mucous membranes moist. Oropharynx without tonsillar hypertrophy exudate or other lesions. NECK: Supple. No adenopathy or masses. No carotid bruits or JVD CHEST: Clear to auscultation. No respiratory distress. No wheezes rales or rhonchi HEART: Regular rate and rhythm. No murmur heard. Normal peripheral pulses. SKIN: Warm, dry, no rash. NEURO: Alert and oriented x3. No focal deficit. Moving all 4 limbs spontaneously PSYCH: Normal mood and affect. Course Course Emergency Course: 10:50 - The patient's exam is consistent 2 processes ongoing, 1 dental the left parotid gland consistent with parotitis. Will discharge with oral antibiotics and recommendation for sialagogues. I discussed the findings and recommendations with the patient. Discussed return and emergency precautions including signs/symptoms of deep space neck infection and airway compromise. The patient voiced understanding and agreement with the plan. All questions answered to her satisfaction. Vital Signs Vital signs: Vital Signs Temperature 98.1 F 05/17/24 09:09 Pulse Rate 109 H 05/17/24 09:09 Respiratory Rate 16 05/17/24 09:09 Blood Pressure 134/79 05/17/24 09:09 Pulse Oximetry 99 05/17/24 09:09 Temperature 98.1 F 05/17/24 09:09 Pulse Rate 80 05/17/24 09:14 Respiratory Rate 18 05/17/24 09:14 Blood Pressure 134/79 05/17/24 09:09 Pulse Oximetry 98 05/17/24 09:14 Oxygen Delivery Room Air 05/17/24 09:14 MDM - Dental/Oral MDM Narrative Medical decision making narrative: Plan: Pain control, oral antibiotics, sialagogues, dental and primary care follow-up Differential Diagnosis Differential diagnosis: Likely dental caries, toothache, dental abscess and other (Sialoadenitis, parotitis, other) Discharge Plan Discharge Clinical Impression: Abscess, dental, Sialoadenitis Patient Disposition: Home, Self-Care Condition: Stable Instructions: Antibiotic Form, Dental Abscess (ED), Sialoadenitis (ED) Additional Instructions: You were seen in the emergency department. Your exam is consistent with to processes, dental abscess and sialoadenitis. I recommend oral antibiotics, tart candies and follow-up with a dentist. If you develop rapidly spreading swelling of the neck with fevers, difficulty breathing, difficulty swallowing, or if you have other emergent concerns for life, limb, or eyesight, return to the emergency department. Patient Language: Kosovan Prescriptions: New clindamycin HCl 150 mg capsule 450 mg PO Q8H 7 Days Qty: 63 0RF No Action cholecalciferol (vitamin D3) 400 unit capsule 400 unit PO DAILY Qty: 60 0RF Ozempic 2 mg/dose (8 mg/3 mL) pen injector 2 mg SUBCUT WEEKLY Qty: 9 0RF paroxetine HCl 10 mg tablet 10 mg PO DAILY Qty: 90 1RF (DME) pen needle, diabetic [Easy Comfort Pen [place]] 31 gauge x 1/4 needle See Rx Instructions .ROUTE .MEDSUPPLY Qty: 300 3RF Rx Instructions: Use with insulin 4 times a day Gvoke HypoPen 2-Pack 1 mg/0.2 mL auto-injector 1 mg subcut ONCE Qty: 0.4 4RF Rx Instructions: may repeat once after 15 minutes if no response glucose [Dex4 Glucose] 4 gram tablet,chewable 16 g PO Q15M PRN (Reason: hypoglycemia) Qty: 60 1RF Rx Instructions: until symptoms of low blood sugar are controlled insulin lispro [Humalog KwikPen Insulin] 100 unit/mL insulin pen 8 unit subcut TIDWMEAL MDD 60 Qty: 30 2RF Rx Instructions: 8 units premeal + SSI 150-200: 2 units 201-250: 4 units 251-300: 6 units 301-350: 8 units 351-400: 10 units >401: 12 units gabapentin 300 mg capsule 300 mg PO DAILY Qty: 90 1RF Jardiance 25 mg tablet 25 mg PO DAILY Qty: 90 1RF meloxicam 15 mg tablet 15 mg PO DAILY Qty: 90 1RF rosuvastatin 40 mg tablet 40 mg PO DAILY Qty: 90 1RF metformin 500 mg tablet extended release 24 hr 500 mg PO BID Qty: 180 1RF (DME) FreeStyle Fiordaliza 3 Plus Sensor Device See Rx Instructions .ROUTE .MEDSUPPLY Qty: 6 2RF Rx Instructions: Use to monitor glucose lisinopril 20 mg tablet 20 mg PO DAILY Qty: 90 1RF Lantus Solostar U-100 Insulin 100 unit/mL (3 mL) insulin pen 40 unit SUB-Q DAILY Qty: 45 1RF Patient Comments: takes 30units at bedtime Follow-up/Referrals: Azeb Kelley APRN [Primary Care Provider] - 2 Weeks Stand Alone Forms: Work/School Release IP Time of Disposition: 10:51
[2024-05-17] MEDS: KETOROLAC 30 MG/ML VIAL (*BKC) IM (11:00)
[2024-05-17 11:05] VITALS: BP 129/79; PULSE 76; RESP 18; O2SAT 100
--- OUTSIDE RECORDS SUMMARY | 2024-05-22 08:48 | XMS_ITS | Data Portability ---
Author Organization [place] [facility] [employer], Main Office Address [address] [place] [address] Care Team Providers Care Manager Mining Name Role Phone AZEB CH Primary Care Provider [phone] AZEB CH Referring Provider [phone] Assessment No assessment recorded. Plan of Treatment Reminders Order Date Submit Date Provider Last Modified By Organization Details Last Modified Time Details Appointments None recorded. Lab CMP, serum or plasma 2022 023 [employer] [facility], [address], [place], [address], 3 15:05:14 HbA1c (hemoglobin A1c), blood 2022 023 [employer] [facility], [address], [place], [address], 3 15:05:16 lipid panel, serum 2022 023 [employer] [facility], [address], [place], [address], 3 15:05:13 CMP, serum or plasma 2022 023 [facility], [address], [place], [address], 3 08:45:44 HbA1c (hemoglobin A1c), blood 2022 023 [facility], [address], [place], [address], 3 08:45:44 lipid panel, serum 2022 023 Immediately [facility], [address], [place], [address], 3 08:45:44 CMP, serum or plasma 2022 024 [employer] [facility], [address], [place], [address], 4 06:18:05 HbA1c (hemoglobin A1c), blood 2022 024 [employer] [facility], [address], [place], [address], 4 06:18:06 lipid panel, serum 2022 024 RAPHAEL Immediately [facility], [address], [place], [address], 4 06:18:03 Referral gastroenter ologist referral - colonoscopy had polyps 5 years ago Please call pt to schedule appt. Thank you 2022 023 [email or web address] Ishmael paiz MD, [address], [place], [address], 3 09:23:33 Procedures None recorded. Surgeries None recorded. Imaging None recorded. Medication Orders Trulicity 4.5 mg/0.5 mL subcutaneou s pen injector 2022 023 [id number], [address], [place], [id number], 4 08:26:00 Lantus Solostar U-100 Insulin 100 unit/mL (3 mL) subcutaneou s pen 2022 023 [facility], [address], [place], [place], [id number], 3 08:45:37 Ozempic 0.25 mg or 0.5 mg (2 mg/1.5 mL) subcutaneou s pen injector 2022 023 [facility] #84858, [address], [place], [place], [id number], 4 08:25:46 Ozempic 1 mg/dose (4 mg/3 mL) subcutaneou s pen injector 2022 023 [facility], [address], [place], [place], [id number], 3 08:47:51 Ozempic 2 mg/dose (8 mg/3 mL) subcutaneou s pen injector 2023 024 [facility], [address], [place], [place], [id number], 4 08:41:11 meloxicam 15 mg tablet 2023 024 [facility], [address], [place], [place], [id number], 4 08:41:12 Patient TargetsNo targets recorded. Patient Instructions Encounter Date Encounter Id Patient Instructions Last Modified By Organization Details Last Modified Time 07/14/2022 [id number] FU in 3 mo for dm, depression, htn, lipid, vit d def, weight. Not available 07/14/2022 08:29:28 10/13/2022 [id number] FU in 4 mo for uncontrolled DM, depression, htn, ;lipid, vit d def, weight. Not available 10/13/2022 08:59:33 02/02/2023 [id number] 3 mo fu dm, weight, lipid, vit d def, htn, anxiety/depressio n, osteoarthritis. Not available 02/02/2023 08:51:31 05/04/2023 [id number] 05/03/23 pt aware of gail departure. Needs fu and labs aprox 3 mo. Not available 05/04/2023 08:43:58 Reason for Referral Remedial Teacher Referral for Screening for malignant neoplasm of colon colonoscopy had polyps 5 years ago Please call pt to schedule appt. Thank you Referring Physician: Azeb Ch, Family Medicine, Encounter Date: 07/14/2022 Results Created Date Observation Date Name Description Value Unit Range Abnormal Flag Note LastModifiedBy Organization Detail LastModifiedTime 03/15/20 22 03/16/2022 HEMOG LOBIN A1C hemoglobin A1C 9.5 %_of_ total _HGB <5.7 high For someo ne witho ut known diabe derrick, a hemog lobin A1c value of 6.5% or great er indic ates that they may have diabe derrick and this shoul d be confi rmed with a follo w-up test. For someo ne with known diabe derrick, a value <7% indic ates that their diabe derrick is well contr olled and a value great er than or equal to 7% indic ates subop timal contr ol. A1c targe ts shoul d be indiv idual ized based on durat ion of diabe derrick, age, comor bid condi tions , and other consi derat ions. Curre ntly, no conse nsus exist s rosi concepcion use of hemog lobin A1c for diagn osis of diabe derrick for child young. Not Available Immediately [facility] [address], [place], [address], 03/16/2022 01:52:04 03/15/2003/16/2022 BASIC METAB OLIC PANEL glucose 203 mg/dL 65-99 high Fasti ng refer ence inter moe For someo ne witho ut known diabe derrick, a gluco se value >125 mg/dL indic ates that they may have diabe derrick and this shoul d be confi rmed with a follo w-up test. Not Available [address] [address] [place], [address], 03/16/2022 01:52:00 03/15/20 22 03/16/2022 BASIC METAB OLIC PANEL urea nitrogen (BUN) 17 mg/dL 7-25 normal Not Available [facility] [address] [address] [place], [address], 03/16/2022 01:52:00 03/15/20 22 03/16/2022 BASIC METAB OLIC PANEL creatinine 0.90 mg/dL 0.50-1 .03 normal Not Available [facility] [address] [address] [place], [address], 03/16/2022 01:52:00 03/15/20 22 03/16/2022 BASIC METAB OLIC PANEL eGFR 76 mL/mi n/1.7 3m2 > or = 60 normal The eGFR is based on the CKD-E PI 2020 equat ion. To calcu late the new eGFR from a previ ous Creat inine or Cysta tin C resul t, go to https ://pau [email or web address] [email or web address] [email or web address] s/ kdoqi /gfr% 5Fcal culat or Not Available [address] [address] [place], [address], 03/16/2022 01:52:00 03/15/20 22 03/16/2022 BASIC METAB OLIC PANEL BUN/creatini ne ratio not applic able (calc ) 6-22 Not Available [address] [address] [place], [address], 03/16/2022 01:52:00 03/15/20 22 03/16/2022 BASIC METAB OLIC PANEL sodium 137 mmol/ L 135-14 6 normal Not Available [address] [address] [place], [address], 03/16/2022 01:52:00 03/15/20 22 03/16/2022 BASIC METAB OLIC PANEL potassium 4.2 mmol/ L 3.5-5. 3 normal Not Available [address], [address], 03/16/2022 01:52:00 03/15/20 22 03/16/2022 BASIC METAB OLIC PANEL chloride 105 mmol/ L 98-110 normal Not Available [address], [address], 03/16/2022 01:52:00 03/15/20 22 03/16/2022 BASIC METAB OLIC PANEL carbon dioxide 26 mmol/ L 20-32 normal Not Available [address], [address], 03/16/2022 01:52:00 03/15/20 22 03/16/2022 BASIC METAB OLIC PANEL calcium 9.2 mg/dL 8.6-10 .4 normal Not Available [address], [address], 03/16/2022 01:52:00 07/11/19 23 07/11/2022 LIPID PANEL , STAND NANCI cholesterol, total 146 mg/dL <200 normal Not Available [address], [address], 07/11/2022 01:27:36 07/11/19 23 07/11/2022 LIPID PANEL , STAND NANCI HDL cholesterol 34 mg/dL > or = 50 low Not Available [address], [address], 07/11/2022 01:27:36 07/11/1907/11/2022 LIPID PANEL , STAND NANCI triglyceride s 204 mg/dL <150 high If a non-f astin g speci men was colle cted, consi karissa repea t trigl yceri de testi ng on a fasti ng speci men if clini myla indic ated. Frederick saavedra et al. J. of Clin. Lipid ol. 2015; 9:129 -169. Not Available [facility] [address] [place], [address], 07/11/2022 01:27:36 07/11/19 23 07/11/2022 LIPID PANEL , STAND NANCI LDL-choleste rol 82 mg/dL _(frantz c) normal Refer ence range : <100 Kimi able range <100 mg/dL for prima ry preve ntion ; <70 mg/dL for patie nts with CHD or diabe tic patie nts with > or = 2 CHD risk facto rs. LDL-C is now calcu lated using the Elaine n-Hop kins oliviau wiley n, which is a valid ated novel hailee saldana accur acnam than the Fried eleonora equat ion in the estim ation of LDL-C . Elaine pendleton SS et al. DIEUDONNE. 2013; 310(1 9): 2061- 2068 (http ://ed ucati on.[employer] timoteoMondayOne Properties. com/f aq/FA Q164) Not Available [facility] [address] [address], [place], [address], 07/11/2022 01:27:36 07/11/19 23 07/11/2022 LIPID PANEL , STAND NANCI chol/HDLC ratio 4.3 (calc ) <5.0 normal Not Available [facility] [address] [place], [address], 07/11/2022 01:27:36 07/11/19 23 07/11/2022 LIPID PANEL , STAND NANCI non HDL cholesterol 112 mg/dL _(frantz c) <130 normal For patie nts with diabe derrick plus 1 major ASCVD risk facto r, treat ing to a non-H DL-C goal of <100 mg/dL (LDL- C of <70 mg/dL ) is consi ovidio a souleymane holley optio n. Not Available [facility] [address] [place], [address], 07/11/2022 01:27:36 07/11/19 23 07/11/2022 COMPR EHENS SENG METAB OLIC PANEL glucose 231 mg/dL 65-99 high Fasti ng refer ence inter moe For someo ne witho ut known diabe derrick, a gluco se value >125 mg/dL indic ates that they may have diabe derrick and this shoul d be confi rmed with a follo w-up test. Not Available [facility] [address] [address] [place], [address], 07/11/2022 01:27:37 07/11/1907/11/2022 COMPR EHENS SENG METAB OLIC PANEL urea nitrogen (BUN) 23 mg/dL 7-25 normal Not Available [address], [address], 07/11/2022 01:27:37 07/11/19 23 07/11/2022 COMPR EHENS SENG METAB OLIC PANEL creatinine 0.93 mg/dL 0.50-1 .03 normal Not Available [address] [address] [place], [address], 07/11/2022 01:27:37 07/11/1907/11/2022 COMPR EHENS SENG METAB OLIC PANEL eGFR 73 mL/mi n/1.7 3m2 > or = 60 normal The eGFR is based on the CKD-E PI 2020 equat ion. To calcu late the new eGFR from a previ ous Creat inine or Cysta tin C resul t, go to https ://pau [email or web address]/ kdoqi /gfr% 5Fcal culat or Not Available Immediately [address] [address] [place], [address], 07/11/2022 01:27:37 07/11/19 23 07/11/2022 COMPR EHENS SENG METAB OLIC PANEL BUN/creatini ne ratio NOT APPLIC ABLE (calc ) 6-22 Not Available [address] [address] [place], [address], 07/11/2022 01:27:37 07/11/19 23 07/11/2022 COMPR EHENS SENG METAB OLIC PANEL sodium 137 mmol/ L 135-14 6 normal Not Available [address], [address], 07/11/2022 01:27:37 07/11/19 23 07/11/2022 COMPR EHENS SENG METAB OLIC PANEL potassium 4.2 mmol/ L 3.5-5. 3 normal Not Available [address], [address], 07/11/2022 01:27:37 07/11/19 23 07/11/2022 COMPR EHENS SENG METAB OLIC PANEL chloride 102 mmol/ L 98-110 normal Not Available [address], [address], 07/11/2022 01:27:37 07/11/19 23 07/11/2022 COMPR EHENS SENG METAB OLIC PANEL carbon dioxide 26 mmol/ L 20-32 normal Not Available [address], [address], 07/11/2022 01:27:37 07/11/19 23 07/11/2022 COMPR EHENS SENG METAB OLIC PANEL calcium 9.4 mg/dL 8.6-10 .4 normal Not Available [address], [address], 07/11/2022 01:27:37 07/11/19 23 07/11/2022 COMPR EHENS SENG METAB OLIC PANEL protein, total 6.9 g/dL 6.1-8. 1 normal Not Available [address], [address], 07/11/2022 01:27:37 07/11/19 23 07/11/2022 COMPR EHENS SENG METAB OLIC PANEL albumin 4.1 g/dL 3.6-5. 1 normal Not Available [address] [address] [place], [address], 07/11/2022 01:27:37 07/11/19 23 07/11/2022 COMPR EHENS SENG METAB OLIC PANEL globulin 2.8 g/dL_ (calc ) 1.9-3. 7 normal Not Available [address], [address], 07/11/2022 01:27:37 07/11/19 23 07/11/2022 COMPR EHENS SENG METAB OLIC PANEL albumin/glob ulin ratio 1.5 (calc ) 1.0-2. 5 normal Not Available [address], [address], 07/11/2022 01:27:37 07/11/19 23 07/11/2022 COMPR EHENS SENG METAB OLIC PANEL bilirubin, total 0.6 mg/dL 0.2-1. 2 normal Not Available [address] [address] [place], [address], 07/11/2022 01:27:37 07/11/19 23 07/11/2022 COMPR EHENS SENG METAB OLIC PANEL alkaline phosphatase 96 U/L 37-153 normal Not Available [address] [address] [place], [address], 07/11/2022 01:27:37 07/11/19 23 07/11/2022 COMPR EHENS SENG METAB OLIC PANEL AST 14 U/L 10-35 normal Not Available [address], [address], 07/11/2022 01:27:37 07/11/19 23 07/11/2022 COMPR EHENS SENG METAB OLIC PANEL ALT 20 U/L 6-29 normal Not Available [address] [address] [place], [address], 07/11/2022 01:27:37 07/11/19 23 07/11/2022 HEMOG LOBIN A1C hemoglobin A1C 10.8 %_of_ total _HGB <5.7 high For someo ne witho ut known diabe derrick, a hemog lobin A1c value of 6.5% or great er indic ates that they may have diabe derrick and this shoul d be confi rmed with a follo w-up test. For someo ne with known diabe derrick, a value <7% indic ates that their diabe derrick is well contr olled and a value great er than or equal to 7% indic ates subop timal contr ol. A1c targe ts shoul d be indiv idual ized based on durat ion of diabe derrick, age, comor bid condi tions , and other consi derat ions. Curre ntly, no conse nsus exist s rosi concepcion use of hemog lobin A1c for diagn osis of diabe derrick for child young. Not Available [address] [address] [place], [address], 07/11/2022 01:27:37 10/10/1910/10/2022 LIPID PANEL , STAND NANCI cholesterol, total 171 mg/dL <200 normal Not Available [facility] [address] [place], [address], 10/10/2022 15:05:13 10/10/19 23 10/10/2022 LIPID PANEL , STAND NANCI HDL cholesterol 34 mg/dL > or = 50 low Not Available [facility] [address] [address] [place], [address], 10/10/2022 15:05:13 10/10/19 23 10/10/2022 LIPID PANEL , STAND NANCI triglyceride s 188 mg/dL <150 high Not Available [facility] [address] [address] [place], [address], 10/10/2022 15:05:13 10/10/19 23 10/10/2022 LIPID PANEL , STAND NANCI LDL-choleste rol 107 mg/dL _(frantz c) high Refer ence range : <100 Kimi able range <100 mg/dL for prima ry preve ntion ; <70 mg/dL for patie nts with CHD or diabe tic patie nts with > or = 2 CHD risk facto rs. LDL-C is now calcu lated using the Elaine n-Hop kins calcu wiley n, which is a valid ated novel metho d provi jamey kt r accur acy than the Fried eleonora equat ion in the estim ation of LDL-C . Elaine pendleton SS et al. DIEUDONNE. 2013; 310(1 9): 2061- 2068 (http ://ed ucati on.Qu Zeer. com/f aq/FA Q164) Not Available [facility] [address] [place], [address], 10/10/2022 15:05:13 10/10/19 23 10/10/2022 LIPID PANEL , STAND NANCI chol/HDLC ratio 5.0 (calc ) <5.0 high Not Available [facility] [address] [place], [address], 10/10/2022 15:05:13 10/10/19 23 10/10/2022 LIPID PANEL , STAND NANCI non HDL cholesterol 137 mg/dL _(frantz c) <130 high For patie nts with diabe derrick plus 1 major ASCVD risk facto r, treat ing to a non-H DL-C goal of <100 mg/dL (LDL- C of <70 mg/dL ) is consi dered a thera peutkellie c optio n. Not Available [facility] [address] [place], [address], 10/10/2022 15:05:13 10/10/19 23 10/10/2022 COMPR EHENS SENG METAB OLIC PANEL glucose 193 mg/dL 65-99 high Fasti ng refer ence inter moe For someo ne witho ut known diabe derrick, a gluco se value >125 mg/dL indic ates that they may have diabe derrick and this shoul d be confi rmed with a follo w-up test. Not Available [facility] [address] [address] [place], [address], 10/10/2022 15:05:14 10/10/19 23 10/10/2022 COMPR EHENS SENG METAB OLIC PANEL urea nitrogen (BUN) 15 mg/dL 7-25 normal Not Available [facility] [address] [address] [place], [address], 10/10/2022 15:05:14 10/10/19 23 10/10/2022 COMPR EHENS SENG METAB OLIC PANEL creatinine 0.64 mg/dL 0.50-1 .03 normal Not Available [facility] [address] [address] [place], [address], 10/10/2022 15:05:14 10/10/19 23 10/10/2022 COMPR EHENS SENG METAB OLIC PANEL eGFR 105 mL/mi n/1.7 3m2 > or = 60 normal The eGFR is based on the CKD-E PI 2020 equat ion. To calcu late the new eGFR from a previ ous Creat inine or Cysta anibal C resul t, go to https ://pau [email or web address] [email or web address] masterson/ kdoqi /gfr% 5Fcal culat or Not Available [address] [address] [place], [address], 10/10/2022 15:05:14 10/10/19 23 10/10/2022 COMPR EHENS SENG METAB OLIC PANEL BUN/creatini ne ratio NOT APPLIC ABLE (calc ) 6-22 Not Available [facility] [address] [address] [place], [address], 10/10/2022 15:05:14 10/10/19 23 10/10/2022 COMPR EHENS SENG METAB OLIC PANEL sodium 139 mmol/ L 135-14 6 normal Not Available [facility] [address] [address] [place], [address], 10/10/2022 15:05:14 10/10/19 23 10/10/2022 COMPR EHENS SENG METAB OLIC PANEL potassium 4.0 mmol/ L 3.5-5. 3 normal Not Available [address], [address], 10/10/2022 15:05:14 10/10/19 23 10/10/2022 COMPR EHENS SENG METAB OLIC PANEL chloride 107 mmol/ L 98-110 normal Not Available [address], [address], 10/10/2022 15:05:14 10/10/19 23 10/10/2022 COMPR EHENS SENG METAB OLIC PANEL carbon dioxide 21 mmol/ L 20-32 normal Not Available [address], [address], 10/10/2022 15:05:14 10/10/19 23 10/10/2022 COMPR EHENS SENG METAB OLIC PANEL calcium 9.1 mg/dL 8.6-10 .4 normal Not Available [address], [address], 10/10/2022 15:05:14 10/10/19 23 10/10/2022 COMPR EHENS SENG METAB OLIC PANEL protein, total 6.5 g/dL 6.1-8. 1 normal Not Available [address], [address], 10/10/2022 15:05:14 10/10/19 23 10/10/2022 COMPR EHENS SENG METAB OLIC PANEL albumin 3.8 g/dL 3.6-5. 1 normal Not Available [address], [address], 10/10/2022 15:05:14 10/10/19 23 10/10/2022 COMPR EHENS SENG METAB OLIC PANEL globulin 2.7 g/dL_ (calc ) 1.9-3. 7 normal Not Available [address], [address], 10/10/2022 15:05:14 10/10/19 23 10/10/2022 COMPR EHENS SENG METAB OLIC PANEL albumin/glob ulin ratio 1.4 (calc ) 1.0-2. 5 normal Not Available [address], [address], 10/10/2022 15:05:14 10/10/19 23 10/10/2022 COMPR EHENS SENG METAB OLIC PANEL bilirubin, total 0.5 mg/dL 0.2-1. 2 normal Not Available [address], [address], 10/10/2022 15:05:14 10/10/19 23 10/10/2022 COMPR EHENS SENG METAB OLIC PANEL alkaline phosphatase 98 U/L 37-153 normal Not Available [address], [address], 10/10/2022 15:05:14 10/10/19 23 10/10/2022 COMPR EHENS SENG METAB OLIC PANEL AST 13 U/L 10-35 normal Not Available [address], [address], 10/10/2022 15:05:14 10/10/19 23 10/10/2022 COMPR EHENS SENG METAB OLIC PANEL ALT 19 U/L 6-29 normal Not Available [address], [address], 10/10/2022 15:05:14 10/10/1910/10/2022 ALBUM IN, RANDO M URINE W/O CREAT ININE albumin, urine 0.9 mg/dL see note: normal Refer ence Range : Refer ence Range Not estab lishe d Not Available [id number], [place], [address], 10/10/2022 15:05:15 10/10/1910/10/2022 ALBUM IN, RANDO M URINE W/O CREAT ININE EAGLE The ADA defin es abnor malit ies in album in excre tion as follo ws: Album inuri a Categ ory Resul t (mcg/ mg creat inine ) Tova l to Mildl y incre ased <30 Moder ately incre ased 30-29 9 Sever stefan incre ased > OR = 300 The ADA recom mends that at least two of three speci mens colle cted withi n a 3-6 month perio d be abnor mal befor e consi otilia g a patie nt to be withi n a diagn ostic categ ory. Not Available [facility] [address] [place], [address], 10/10/2022 15:05:15 10/10/1910/10/2022 HEMOG LOBIN A1C hemoglobin A1C 9.2 %_of_ total _HGB <5.7 high For someo ne witho ut known diabe derrick, a hemog lobin A1c value of 6.5% or great er indic ates that they may have diabe derrick and this shoul d be confi rmed with a follo w-up test. For someo ne with known diabe derrick, a value <7% indic ates that their diabe derrick is well contr olled and a value great er than or equal to 7% indic ates subop timal contr ol. A1c targe ts shoul d be indiv idual ized based on durat ion of diabe derrick, age, comor bid condi tions , and other consi derat ions. Curre ntly, no conse nsus exist s rosi concepcion use of hemog lobin A1c for diagn osis of diabe derrick for child young. Not Available [facility] [address] [place], [address], 10/10/2022 15:05:16 02/01/2002/01/2023 LIPID PANEL , STAND NANCI cholesterol, total 133 mg/dL <200 normal Not Available [address] [address] [place], [address], 02/01/2023 03:50:33 02/01/2002/01/2023 LIPID PANEL , STAND NANCI HDL cholesterol 36 mg/dL > or = 50 low Not Available [facility] [address] [address] [place], [address], 02/01/2023 03:50:33 02/01/20 23 02/01/2023 LIPID PANEL , STAND NANCI triglyceride s 193 mg/dL <150 high Not Available [facility] [address] [address] [place], [address], 02/01/2023 03:50:33 02/01/2002/01/2023 LIPID PANEL , STAND NANCI LDL-choleste rol 71 mg/dL _(frantz c) normal Refer ence range : <100 Kimi able range <100 mg/dL for prima ry preve ntion ; <70 mg/dL for patie nts with CHD or diabe tic patie nts with > or = 2 CHD risk facto rs. LDL-C is now calcu lated using the Elaine n-Hop kins calcu wiley n, which is a valid ated novel metho d provi ding kt r accur acy than the Fried eleonora equat ion in the estim ation of LDL-C . Elaine pendleton SS et al. DIEUDONNE. 2013; 310(1 9): 2061- 2068 (http ://ed ucati on.Qu Padmini ADmantXs. com/f aq/FA Q164) Not Available [facility] [address] [address] [place], [address], 02/01/2023 03:50:33 02/01/20 23 02/01/2023 LIPID PANEL , STAND NANCI chol/HDLC ratio 3.7 (calc ) <5.0 normal Not Available [facility] [address] [address] [place], [address], 02/01/2023 03:50:33 02/01/2002/01/2023 LIPID PANEL , STAND NANCI non HDL cholesterol 97 mg/dL _(frantz c) <130 normal For patie nts with diabe derrick plus 1 major ASCVD risk facto r, treat ing to a non-H DL-C goal of <100 mg/dL (LDL- C of <70 mg/dL ) is consi orald a thera peambrocio c optio n. Not Available [facility] [address] [address] [place], [address], 02/01/2023 03:50:33 02/01/2002/01/2023 COMPR EHENS SENG METAB OLIC PANEL glucose 164 mg/dL 65-99 high Fasti ng refer ence inter moe For someo ne witho ut known diabe derrick, a gluco se value >125 mg/dL indic ates that they may have diabe derrick and this shoul d be confi rmed with a follo w-up test. Not Available [address] [address] [place], [address], 02/01/2023 03:50:35 02/01/2002/01/2023 COMPR EHENS SENG METAB OLIC PANEL urea nitrogen (BUN) 16 mg/dL 7-25 normal Not Available [facility] [address] [address] [place], [address], 02/01/2023 03:50:35 02/01/2002/01/2023 COMPR EHENS SENG METAB OLIC PANEL creatinine 0.78 mg/dL 0.50-1 .03 normal Not Available [facility] [place] [address] [address] [place], [address], 02/01/2023 03:50:35 02/01/2002/01/2023 COMPR EHENS SENG METAB OLIC PANEL eGFR 90 mL/mi n/1.7 3m2 > or = 60 normal Not Available [facility] [place] [address] [address] [place], [address], 02/01/2023 03:50:35 02/01/20 23 02/01/2023 COMPR EHENS SENG METAB OLIC PANEL BUN/creatini ne ratio SEE NOTE: (calc ) 6-22 Not Repor keo: BUN and Creat inine are withi n refer ence range . Not Available [address], [address], 02/01/2023 03:50:35 02/01/20 23 02/01/2023 COMPR EHENS SENG METAB OLIC PANEL sodium 141 mmol/ L 135-14 6 normal Not Available [address], [address], 02/01/2023 03:50:35 02/01/20 23 02/01/2023 COMPR EHENS SENG METAB OLIC PANEL potassium 4.0 mmol/ L 3.5-5. 3 normal Not Available [address], [place], [address], 02/01/2023 03:50:35 02/01/2002/01/2023 COMPR EHENS SENG METAB OLIC PANEL chloride 104 mmol/ L 98-110 normal Not Available [address], [address], 02/01/2023 03:50:35 02/01/20 23 02/01/2023 COMPR EHENS SENG METAB OLIC PANEL carbon dioxide 25 mmol/ L 20-32 normal Not Available [address], [address], 02/01/2023 03:50:35 02/01/2002/01/2023 COMPR EHENS SENG METAB OLIC PANEL calcium 9.2 mg/dL 8.6-10 .4 normal Not Available [address], [address], 02/01/2023 03:50:35 02/01/2002/01/2023 COMPR EHENS SENG METAB OLIC PANEL protein, total 6.9 g/dL 6.1-8. 1 normal Not Available [address], [address], 02/01/2023 03:50:35 02/01/20 23 02/01/2023 COMPR EHENS SENG METAB OLIC PANEL albumin 4.1 g/dL 3.6-5. 1 normal Not Available [address], [address], 02/01/2023 03:50:35 02/01/2002/01/2023 COMPR EHENS SENG METAB OLIC PANEL globulin 2.8 g/dL_ (calc ) 1.9-3. 7 normal Not Available [address], [address], 02/01/2023 03:50:35 02/01/20 23 02/01/2023 COMPR EHENS SENG METAB OLIC PANEL albumin/glob ulin ratio 1.5 (calc ) 1.0-2. 5 normal Not Available [address], [address], 02/01/2023 03:50:35 02/01/20 23 02/01/2023 COMPR EHENS SENG METAB OLIC PANEL bilirubin, total 0.4 mg/dL 0.2-1. 2 normal Not Available [address], [address], 02/01/2023 03:50:35 02/01/20 23 02/01/2023 COMPR EHENS SENG METAB OLIC PANEL alkaline phosphatase 106 U/L 37-153 normal Not Available [address], [address], 02/01/2023 03:50:35 02/01/20 23 02/01/2023 COMPR EHENS SENG METAB OLIC PANEL AST 18 U/L 10-35 normal Not Available [facility] [address] [address] [place], [address], 02/01/2023 03:50:35 02/01/20 23 02/01/2023 COMPR EHENS SENG METAB OLIC PANEL ALT 25 U/L 6-29 normal Not Available [facility] [address] [address] [place], [address], 02/01/2023 03:50:35 02/01/20 23 02/01/2023 HEMOG LOBIN A1C hemoglobin A1C 9.8 %_of_ total _HGB <5.7 high For someo ne witho ut known diabe derrick, a hemog lobin A1c value of 6.5% or great er indic ates that they may have diabe derrick and this shoul d be confi rmed with a follo w-up test. For someo ne with known diabe derrick, a value <7% indic ates that their diabe derrick is well contr olled and a value great er than or equal to 7% indic ates subop timal contr ol. A1c targe ts shoul d be indiv idual ized based on durat ion of diabe derrick, age, comor bid condi tions , and other consi derat ions. Curre ntly, no conse nsus exist s regar ding use of hemog lobin A1c for diagn osis of diabe derrick for child young. Not Available [facility] [address] [address] [place], [address], 02/01/2023 03:50:36 05/01/19 24 05/02/2023 LIPID PANEL , STAND NANCI cholesterol, total 145 mg/dL <200 normal Not Available [facility] [address] [address] [place], [address], 05/02/2023 06:18:03 05/01/19 24 05/02/2023 LIPID PANEL , STAND NANCI HDL cholesterol 31 mg/dL > or = 50 low Not Available [facility] [address] [address] [place], [address], 05/02/2023 06:18:03 05/01/19 24 05/02/2023 LIPID PANEL , STAND NANCI triglyceride s 215 mg/dL <150 high If a non-f astin g speci men was colle cted, consi karissa repea t trigl yceri de testi ng on a fasti ng speci men if clini myla indic ated. Frederick saavedra et al. J. of Clin. Lipid ol. 2015; 9:129 -169. Not Available Immediately [facility] [address] [place], [address], 05/02/2023 06:18:03 05/01/19 24 05/02/2023 LIPID PANEL , STAND NANCI LDL-choleste rol 83 mg/dL _(frantz c) normal Refer ence range : <100 Kimi able range <100 mg/dL for prima ry preve ntion ; <70 mg/dL for patie nts with CHD or diabe tic patie nts with > or = 2 CHD risk facto rs. LDL-C is now calcu lated using the Elaine n-Hop kins calcu latpatricia n, which is a valid ated novel metho d provi ding kt r accur acy than the Fried eleonora equat ion in the estim ation of LDL-C . Elaine pendleton SS et al. DIEUDONNE. 2013; 310(1 9): 2061- 2068 (http ://ed ucati on.Qu timoteoMondayOne Properties. com/f aq/FA Q164) Not Available Immediately [facility] [address] [place] [address], [address], 05/02/2023 06:18:03 05/01/19 24 05/02/2023 LIPID PANEL , STAND NANCI chol/HDLC ratio 4.7 (calc ) <5.0 normal Not Available Immediately [facility] [address] [place], [address], 05/02/2023 06:18:03 05/01/19 24 05/02/2023 LIPID PANEL , STAND NANCI non HDL cholesterol 114 mg/dL _(frantz c) <130 normal For patie nts with diabe derrick plus 1 major ASCVD risk facto r, treat ing to a non-H DL-C goal of <100 mg/dL (LDL- C of <70 mg/dL ) is yung ramírez n. Not Available [address], [address], 05/02/2023 06:18:03 05/01/19 24 05/02/2023 COMPR EHENS SENG METAB OLIC PANEL glucose 261 mg/dL 65-99 high Fasti ng refer ence inter moe For someo ne witho ut known diabe derrick, a gluco se value >125 mg/dL indic ates that they may have diabe derrick and this shoul d be confi rmed with a follo w-up test. Not Available [address], [address], 05/02/2023 06:18:05 05/01/19 24 05/02/2023 COMPR EHENS SENG METAB OLIC PANEL urea nitrogen (BUN) 21 mg/dL 7-25 normal Not Available [address], [address], 05/02/2023 06:18:05 05/01/19 24 05/02/2023 COMPR EHENS SENG METAB OLIC PANEL creatinine 0.89 mg/dL 0.50-1 .03 normal Not Available [address], [address], 05/02/2023 06:18:05 05/01/19 24 05/02/2023 COMPR EHENS SENG METAB OLIC PANEL eGFR 77 mL/mi n/1.7 3m2 > or = 60 normal Not Available [facility] [address], [address], 05/02/2023 06:18:05 05/01/19 24 05/02/2023 COMPR EHENS SENG METAB OLIC PANEL BUN/creatini ne ratio SEE NOTE: (calc ) 6-22 Not Repor keo: BUN and Creat inine are withi n refer ence range . Not Available [address] [address] [place], [address], 05/02/2023 06:18:05 05/01/19 24 05/02/2023 COMPR EHENS SENG METAB OLIC PANEL sodium 138 mmol/ L 135-14 6 normal Not Available [facility] [address] [address] [place], [address], 05/02/2023 06:18:05 05/01/19 24 05/02/2023 COMPR EHENS SENG METAB OLIC PANEL potassium 4.2 mmol/ L 3.5-5. 3 normal Not Available [facility] [address] [address] [place], [address], 05/02/2023 06:18:05 05/01/19 24 05/02/2023 COMPR EHENS SENG METAB OLIC PANEL chloride 103 mmol/ L 98-110 normal Not Available [facility] [address] [address] [place], [address], 05/02/2023 06:18:05 05/01/19 24 05/02/2023 COMPR EHENS SENG METAB OLIC PANEL carbon dioxide 27 mmol/ L 20-32 normal Not Available [facility] [address] [address] [place], [address], 05/02/2023 06:18:05 05/01/19 24 05/02/2023 COMPR EHENS SENG METAB OLIC PANEL calcium 9.5 mg/dL 8.6-10 .4 normal Not Available [facility] [address] [address] [place], [address], 05/02/2023 06:18:05 05/01/19 24 05/02/2023 COMPR EHENS SENG METAB OLIC PANEL protein, total 6.7 g/dL 6.1-8. 1 normal Not Available [facility] [address] [address] [place], [address], 05/02/2023 06:18:05 05/01/19 24 05/02/2023 COMPR EHENS SENG METAB OLIC PANEL albumin 4.2 g/dL 3.6-5. 1 normal Not Available [address], [address], 05/02/2023 06:18:05 05/01/19 24 05/02/2023 COMPR EHENS SENG METAB OLIC PANEL globulin 2.5 g/dL_ (calc ) 1.9-3. 7 normal Not Available [address], [address], 05/02/2023 06:18:05 05/01/19 24 05/02/2023 COMPR EHENS SENG METAB OLIC PANEL albumin/glob ulin ratio 1.7 (calc ) 1.0-2. 5 normal Not Available [address], [address], 05/02/2023 06:18:05 05/01/19 24 05/02/2023 COMPR EHENS SENG METAB OLIC PANEL bilirubin, total 0.6 mg/dL 0.2-1. 2 normal Not Available [address], [address], 05/02/2023 06:18:05 05/01/19 24 05/02/2023 COMPR EHENS SENG METAB OLIC PANEL alkaline phosphatase 99 U/L 37-153 normal Not Available [address], [address], 05/02/2023 06:18:05 05/01/19 24 05/02/2023 COMPR EHENS SENG METAB OLIC PANEL AST 16 U/L 10-35 normal Not Available [address], [address], 05/02/2023 06:18:05 05/01/19 24 05/02/2023 COMPR EHENS SENG METAB OLIC PANEL ALT 24 U/L 6-29 normal Not Available [facility] [address] [place], [address], 05/02/2023 06:18:05 05/01/19 24 05/02/2023 HEMOG LOBIN A1C hemoglobin A1C 9.8 %_of_ total _HGB <5.7 high For someo ne witho ut known diabe derrick, a hemog lobin A1c value of 6.5% or great er indic ates that they may have diabe derrick and this shoul d be confi rmed with a follo w-up test. For someo ne with known diabe derrick, a value <7% indic ates that their diabe derrick is well contr olled and a value great er than or equal to 7% indic ates subop timal contr ol. A1c targe ts shoul d be indiv idual ized based on durat ion of diabe derrick, age, comor bid condi tions , and other consi derat ions. Curre ntly, no conse nsus exist s regar ding use of hemog lobin A1c for diagn osis of diabe derrick for child young. Not Available [facility] [address] [place], [address], 05/02/2023 06:18:06 02/18/20 22 02/17/2022 MAMMO , scree john, bilat eral No observ ation record ed. [id number] [facility] 2022 [address] [facility] [address], [place], [address], 06/28/2022 05:01:22 Result Notes None recorded. Problems Name Problem SNOMED Code Status Onset Date Resolution Date Notes Provider Name and Address Organization Details Recorded Time Mixed anxiety and depressive disorder 569551424 Active 2022 Azeb Ch NP [address], [place], [address] , [place] [facility] [employer] 3 08:54:34 Osteoarthr itis of knee 165733613 Active 2022 Azeb Ch NP [address] [facility], [facility] [address], [place], [address] , [facility] 3 08:55:06 Sciatica 78198079 Active 2021 Not Available [employer] 3 04:49:50 Morbid obesity 957629103 Active 2021 Not Available [employer] 3 04:49:50 Tremor 71213246 Active 2019 Not Available [employer] 3 04:49:50 Osteoarthr itis of left knee joint 3821159383908 09 Active 2021 Not Available [employer] 3 04:49:50 Osteoarthr itis of right knee joint 6132475282647 00 Active 2021 Not Available [employer] 3 04:49:50 Vitamin D deficiency 66536676 Active 2019 Not Available [facility] 3 04:49:50 Neuropathy 257781906 Active 2021 Not Available [facility] 3 04:49:50 Peripheral vascular disease 143176485 Active 2019 Not Available [facility] 3 04:49:50 Obese 717413529 Active 2019 Not Available [facility] 3 04:49:50 Uncontroll ed type 2 diabetes mellitus 702067296 Active 2021 Not Available [facility] 3 04:49:51 Pain of bilateral knee joints 6781056505804 04 Active 2021 Not Available [facility] 3 04:49:51 Herpes zoster 3092057 Active 2019 Not Available [facility] 3 04:49:51 Hyperlipid emia 46199523 Active 2019 Not Available [facility] 3 04:49:51 Essential hypertensi on 82643867 Active 2019 Not Available [facility] 3 04:49:51 Diabetes mellitus 69661714 Active 2019 Not Available [facility] 3 04:49:51 Notes:diabetes Problem Notes None recorded. Procedures Surgical History Date Name Laterality Status Provider Name and Address Organization Details Recorded Time 09/12/19 23 Date of Last Colonoscopy completed Azeb Ch, MAYE [address], [place], [address], [facility] 09/13/2022 09:21:07 Tonsillectomy completed Not Available [facility] 06/28/2022 04:41:54 Imaging Results Imaging Date Name Status LastModified by Organiz ation Details LastModified Time 02/17/2022 MAMMO, screening, bilateral completed [id number] [facility] [address], [place], [address], 06/28/2022 05:01:22 Procedure Notes None recorded. Medical Equipment None Reported. Allergies Allergen ID Allergen Name Allergen Category Reaction Reaction Severity Criticality Documentation Date Start Date Code Code System Note Provider Name and Address Organization Details Recorded Time 7486 Product containin g penicilli n and antibioti c (product) medicatio n hives severe Not available 06/28/2022 55702 05 SNOMED Not Available [facility] 3 05:00:51 7487 cefaclor medicatio n rash severe Not available 06/28/2022 2176 RxNorm Not Available [facility] 3 05:00:51 Medications Name Sig Start Date Stop Date Status Note LastModified by Organization Details LastModified Time celecoxib 200 mg capsule Take 1 capsule every day by oral route. 10/13 completed Not Available Not Available Not Available cyclobenzap rine 10 mg tablet Take 1 tablet 3 times a day by oral route. active Not Available Not Available No t Available atorvastati n 40 mg tablet TAKE 1 TABLET BY MOUTH EVERY NIGHT AT BEDTIME 2023 active Not Available Not Available Not Avai lable paroxetine 10 mg tablet TAKE 1 TABLET BY MOUTH EVERY DAY active Not Available Not Available No t Available azithromyci n 250 mg tablet 02/12 completed Not Available Not Available Not Available nystatin 100,000 unit/gram topical ointment APPLY EXTERNALL Y TO VULVAR AREA TWICE DAILY NEEDED 07/07 completed Not Available Not Available Not Available meloxicam 15 mg tablet TAKE 1 TABLET BY MOUTH EVERY DAY 2023 active Not Available Not Available Not Avai lable metronidazo le 0.75 % (37.5 mg/5 gram) vaginal gel INSERT 1 APPLICATO RFUL VAGINALLY AT BEDTIME FOR 5 DAYS 07/11 completed Not Available Not Available Not Available lisinopril 20 mg tablet TAKE 1 TABLET BY MOUTH EVERY DAY active Not Available Not Available No t Available terconazole 0.8 % vaginal cream INSERT ONE APPLICATO RFUL VAGINALLY AT BEDTIME FOR 3 NIGHTS DIRECTED. 02/02 completed Not Available Not Available Not Available clindamycin HCl 150 mg capsule 07/14 completed Not Available Not Available Not Available valacyclovi r 500 mg tablet TAKE 1 TABLET BY MOUTH TWICE DAILY FOR 3 DAYS WITH EACH OUTBREAK active Not Available Not Available No t Available Guaiatussin AC 10 mg-100 mg/5 mL oral liquid 02/12 completed Not Available Not Available Not Available OneTouch Ultra Test strips TEST FASTING GLUCOSE DAILY active Not Available Not Available No t Available Kenalog 10 mg/mL suspension for injection Take 40 mg by injection route. 07/14 completed Not Available Not Available Not Available glimepiride 4 mg tablet TAKE 1 TABLET BY MOUTH TWICE DAILY active Not Available Not Available No t Available gabapentin 300 mg capsule TAKE 1 CAPSULE BY MOUTH EVERY NIGHT active Not Available Not Available No t Available ergocalcife rol (vitamin D2) 1,250 mcg (50,000 unit) capsule TAKE 1 CAPSULE BY MOUTH ONCE WEEKLY WITH A MEAL active Not Available Not Available No t Available azelastine 137 mcg (0.1 %) nasal spray 1 spray each nostril prn 12/16 completed Not Available Not Available Not Available metformin ER 500 mg tablet,exte nded release 24 hr TAKE 2 TABLETS BY MOUTH EVERY DAY active Not Available Not Available No t Available metformin ER 1,000 mg tablet,exte nded release 24hr (osmotic) Take 1 tablet every day by oral route. 10/13 completed Not Available Not Available Not Available Janumet 50 mg-1,000 mg tablet 1 tab po bid 07/07 completed Not Available Not Available Not Available Lantus Solostar U-100 Insulin 100 unit/mL (3 mL) subcutaneou s pen INJECT 20 UNITS UNDER THE SKIN EVERY DAY active Not Available Not Available No t Available ropivacaine (PF) 5 mg/mL (0.5 %) injection solution Take 40 mg by injection route. 07/14 completed Not Available Not Available Not Available Janumet XR 50 mg-1,000 mg tablet,exte nded release TAKE 1 TABLET BY MOUTH TWICE DAILY 07/14 completed Not Available Not Available Not Available Jardiance 25 mg tablet TAKE 1 TABLET BY MOUTH DAILY active Not Available Not Available No t Available Trulicity 1.5 mg/0.5 mL subcutaneou s pen injector ADMINISTE R 1.5 MG UNDER THE SKIN EVERY WEEK 07/11 completed Not Available Not Available Not Available Trulicity 0.75 mg/0.5 mL subcutaneou s pen injector ADMINISTE R 0.75 MG UNDER THE SKIN WEEKLY DIRECTED 12/16 completed Not Available Not Available Not Available Ozempic 0.25 mg or 0.5 mg (2 mg/1.5 mL) subcutaneou s pen injector Inject 0.5 mg every week by subcutane ous route. 05/04 completed Not Available Not Available Not Available BD Lindy 2nd Gen Pen Needle 32 gauge x 5/32 USE DIRECTED NIGHTLY active Not Available Not Available No t Available Trulicity 3 mg/0.5 mL subcutaneou s pen injector ADMINISTE R 0.5 ML UNDER THE SKIN EVERY WEEK 07/14 completed Not Available Not Available Not Available Trulicity 4.5 mg/0.5 mL subcutaneou s pen injector ADMINISTE R 4.5 MG UNDER THE SKIN EVERY WEEK 05/04 completed Not Available Not Available Not Available Ozempic 1 mg/dose (4 mg/3 mL) subcutaneou s pen injector INJECT 1 MG SUBCUTANE OUSLY WEEKLY active Not Available Not Available No t Available Ozempic 2 mg/dose (8 mg/3 mL) subcutaneou s pen injector INJECT 2 MG SUBCUTANE OUSLY WEEKLY active Not Available Not Available No t Available Ozempic 0.25 mg or 0.5 mg (2 mg/3 mL) subcutaneou s pen injector INJECT 0.5 MG SUBCUTANE OUSLY WEEKLY 05/04 completed Not Available Not Available Not Available Vitals Date Recorded Body mass index (BMI) Body height Oxygen saturation Oxygen saturation in Arterial blood by Pulse oximetry Heart rate Respiratory rate Body temperature Body weight Systolic blood pressure Diastolic blood pressure Provider Name and Address Organization Details Last Updated DateTime 2 50.1 kg/m2 157.48 cm 98 % 98 % 80 /min 16 /min 98 [degF] 067844. 31 g 122 mm[Hg] 70 mm[Hg] Not Available [facility] 3 04:47:26 Date Recorded Body height Body mass index (BMI) Body weight Body temperature Heart rate Heart rate Respiratory rate Oxygen saturation Oxygen saturation in Arterial blood by Pulse oximetry Systolic blood pressure Diastolic blood pressure Provider Name and Address Organization Details Last Updated DateTime 3 157.48 cm 46.8 kg/m2 763819. 65 g 97.6 [degF] 82 /min 82 /min 16 /min 97 % 97 % 120 mm[Hg] 80 mm[Hg] Azeb Stark RN [facility] [employer] [facility] 3 08:04:28 Date Recorded Body height Body mass index (BMI) Body weight Body temperature Heart rate Heart rate Respiratory rate Oxygen saturation Oxygen saturation in Arterial blood by Pulse oximetry Systolic blood pressure Diastolic blood pressure Provider Name and Address Organization Details Last Updated DateTime 3 157.48 cm 47.1 kg/m2 088944. 99 g 97.5 [degF] 85 /min 85 /min 16 /min 97 % 97 % 108 mm[Hg] 64 mm[Hg] Azeb Stark RN [facility] [employer] [facility] 3 08:37:14 Date Recorded Body height Body mass index (BMI) Body weight Body temperature Heart rate Respiratory rate Oxygen saturation Oxygen saturation in Arterial blood by Pulse oximetry Systolic blood pressure Diastolic blood pressure Provider Name and Address Organization Details Last Updated DateTime 3 157.48 cm 47.2 kg/m2 421734. 88 g 96.3 [degF] 80 /min 16 /min 97 % 97 % 110 mm[Hg] 70 mm[Hg] Azeb Stark RN [facility] [employer] [facility] 3 08:29:35 Date Recorded Body height Body mass index (BMI) Body weight Body temperature Heart rate Oxygen saturation Oxygen saturation in Arterial blood by Pulse oximetry Systolic blood pressure Diastolic blood pressure Provider Name and Address Organization Details Last Updated DateTime 4 157.48 cm 47.1 kg/m2 355968. 64 g 97.8 [degF] 88 /min 97 % 97 % 138 mm[Hg] 84 mm[Hg] Marlene Sewell MA [place] [facility] [employer] 4 08:18:50 Social History Question Answer Notes LastModified by Organization Details LastModified Time Tobacco Smoking Status Never Smoker Not Available [facility] 06/28/2022 04:32:12 Do You Have An Advance Directive? Yes [id number].0301 [id number] Information not available 06/28/2022 What Is Your Level Of Alcohol Consumption? Occasional MIGRATION.0301 [id number] Information not available 06/28/2022 Do You Wear A Helmet When Biking? No MIGRATION.0301 [id number] Information not available 06/28/2022 Is Blood Transfusion Acceptable In An Emergency? Yes Information not available 07/14/2022 What Is Your Level Of Caffeine Consumption? Occasional Soda, Tea Information not available 02/02/2023 What Is Your Code Status? Full Code Information not available 07/14/2022 In The 14 Days Before Symptom Onset, Have You Had Close Contact With A Laboratory-confi rmed COVID-19 While That Case Was Ill? No MIGRATION.0301 [id number] Information not available 06/28/2022 In The 14 Days Before Symptom Onset, Have You Had Close Contact With A Person Who Is Under Investigation For COVID-19 While That Person Was Ill? No MIGRATION.0301 [id number] Information not available 06/28/2022 Are You Currently Employed? Yes Information not available 07/14/2022 What Type Of Diet Are You Following? 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 No MIGRATION.0301 [id number] Information not available 06/28/2022 What Is The Fluoride Status Of Your Home? Unknown MIGRATION.0301 [id number] Information not available 06/28/2022 Do You Use Insect Repellent Routinely? No MIGRATION.0301 [id number] Information not available 06/28/2022 Where Do You Live? SingleLevelHouse Information not available 07/14/2022 Do You Have A Medical Power Of Staff Development Educator? No MIGRATION.0301 [id number] Information not available 06/28/2022 How Many Children Do You Have? -2 Information not available 07/14/2022 Have You Ever Been Counseled For Unhealthy Alcohol Use? No MIGRATION.0301 [id number] Information not available 06/28/2022 Do You Have Any Pets? Yes Information not available 07/14/2022 Do You Use Protection During Sex? No Information not available 07/14/2022 What Is Your Relationship Status? MIGRATION.0301 [id number] Information not available 06/28/2022 Do You Use Your Seat Belt Or Car Seat Routinely? Yes MIGRATION.0301 [id number] Information not available 06/28/2022 Are You Sexually Active? Yes [facility] Information not available 07/14/2022 Do You Have Smoke And Carbon Monoxide Detectors In Your Home? Yes MIGRATION.0301 [id number] Information not available 06/28/2022 Are You Passively Exposed To Smoke? No MIGRATION.0301 [id number] Information not available 06/28/2022 Are There Any Smokers In Your House? No MIGRATION.0301 [id number] Information not available 06/28/2022 Do You Participate In Social Media? No MIGRATION.0301 [id number] Information not available 06/28/2022 Do You Feel Stressed (tense, Restless, Nervous, Or Anxious, Or Unable To Sleep At Night)? [id number] MIGRATION.0301 [id number] Information not available 06/28/2022 Do You Use Any Illicit Or Recreational Drugs? No MIGRATION.0301 [id number] Information not available 06/28/2022 Do You Use Sunscreen Routinely? No MIGRATION.0301 [id number] Information not available 06/28/2022 Has Tobacco Cessation Counseling Been Provided? No MIGRATION.0301 [id number] Information not available 06/28/2022 Have You Recently Traveled Abroad? No MIGRATION.0301 [id number] Information not available 06/28/2022 Do You Or Have You Ever Used Any Other Forms Of Tobacco Or Nicotine? No MIGRATION.0301 [id number] Information not available 06/28/2022 Sex: Unknown Functional Status Question Answer Note LastModified by Organizat ion Details LastModified Time What is your exercise level? None [id number] Information not available 06/28/2022 Mental Status None recorded. Family History Relationship Description Onset Age of this Age Resolved Age Notes LastModified by Organization Details LastModified Time Mother Diabetes mellitus [id number].722 [id number] Not available 06/28/2022 04:41:59 Mother Thyroiditis MIGRATION.03 0 [id number] Not available 06/28/2022 04:41:59 Mother Congestive heart failure MIGRATION.707 [id number] Not available 06/28/2022 04:41:59 Mother Heart disease MIGRATION.316 [id number] Not available 06/28/2022 04:41:59 Mother Cerebrovascu lar accident MIGRATION.722 [id number] Not available 06/28/2022 04:41:59 Mother Hypertensive disorder MIGRATION.653 [id number] Not available 06/28/2022 04:41:59 Father Diabetes mellitus MIGRATION.782 [id number] Not available 06/28/2022 04:41:59 Father Congestive heart failure MIGRATION.114 [id number] Not available 06/28/2022 04:42:00 Father Heart disease MIGRATION.747 [id number] Not available 06/28/2022 04:42:00 Father Viral hepatitis C MIGRATION.480 [id number] Not available 06/28/2022 04:42:00 Sister Diabetes mellitus MIGRATION.531 [id number] Not available 06/28/2022 04:42:00 Medical History Condition Response BLINDNESS N RHEUMATIC FEVER N KIDNEY STONES N BLADDER PROBLEMS N MRSA N OTHER # 1 N POLIO N LUNG DISEASE/DISORDER N HISTORY OF DRUG ABUSE N RADIATION / CHEMOTHERAPY N COPD N Other # 2 N BLOOD DISEASES N SURGERY N EAR OR HEARING PROBLEMS N MUMPS N SHINGLES N FEMALE PROBLEMS / INFECTIONS N DEPRESSION (INCLUDING POST ) N BOWEL PROBLEMS N STROKE/TIA N THYROID DISEASE N ULCERS N BENIGN PROSTATIC HYPERPLASIA N MEASLES N CERVICALGIA N TB SKIN TEST N HYPOTENSION N MYOCARDIAL INFARCTION N PARAPELGIA N OBESITY N GERD/NAUSEA N ANEURYSM N URINARY/BLADDER/KIDNEY PROBLEMS N CORONARY ARTERY DISEASE (CAD) N MENIERE'S DISEASE N ADDICTION CONCERNS N ENDOMETRIOSIS N USE OF BLOOD THINNERS N SKIN PROBLEMS N EMPHYSEMA N GASTROINTESTINAL DISORDER N MUSCLE,JOINT OR BONE PROBLEMS N GASTROINTESTINAL BLEEDING N BLOOD CLOTS N ASTHMA N CATARACTS N ERECTILE DYSFUNCTION N GI PROBLEMS N CHF N Low Testosterone N NEUROPATHY N INFERTILITY N AIDS/HIV N FRACTURES N CHEMOTHERAPY / RADIATION N VISION/EYE PROBLEMS N LIVER DISEASE N MALE HYPOGONADISM N HYPERTENSION Y TOURETTE'S N ANXIETY DISORDER N BLOOD TRANSFUSION N ANEMIA/BLOOD DISORDER N CHRONIC EAR INFECTIONS N BRONCHITIS N TUBERCULOSIS N GLAUCOMA N FOOT PROBLEM N DIVERTICULITIS N SLEEP APNEA N CHICKENPOX N ALLERGIES/HAYFEVER N INFECTIOUS DISEASE N PROSTATE N HEART ARRHYTHMIA N INSOMNIA N HIGH CHOLESTEROL / HYPERLIPIDEMIA Y EYE PROBLEMS N HYPERTHYROIDISM N EATING DISORDER N EDEMA N CHRONIC PAIN SYNDROME N CAROTID BLOCKAGE N CONSTIPATION N BACK / NECK PROBLEMS N HAVE YOU BEEN HOSPITALIZED OR SEEN IN [facility] IN THE PAST YEAR ? N ATHEROSCLEROSIS N BREAST PROBLEMS N DIALYSIS N ECZEMA N FIBROMYALGIA N OSTEOPOROSIS N ARTHRITIS N NO SIGNIFICANT PAST MEDICAL HISTORY N APPENDICITIS N DIABETES, TYPE Y BAD TEETH N HEARTBURN / REFLUX N ADD/ADHD N AUTISM SPECTRUM DISORDER (ASD) N HEPATITIS / LIVER DISEASE N PULMONARY DISEASE N GOUT N SLEEP DISORDER N ALZHEIMER'S DISEASE N PAIN N DEMENTIA N HERPES N SEIZURES/EPILEPSY N HEADACHES/MIGRAINES N VASCULAR DISEASE N PACEMAKER N DIZZINESS N HEART DISEASE/HEART PROBLEMS N KIDNEY DISEASE N SCARLET FEVER N MULTIPLE SCLEROSIS N DEVELOPMENTAL OR BEHAVIORAL DISORDERS N MENTAL DISORDER/ILLNESS N CANCER: SPECIFY N CARDIAC ARRHYTHMIA N PNEUMONIA N ATRIAL FIBRILLATION N Gall Stones N PULMONARY EMBOLISM N AUTOIMMUNE DISEASE N Gynecological History Statement/Question Response Abnormal Pap N Date of LMP STIs/STDs N Date of Last Pap 01/28/2022 Most Recent Mammogram Current Control Method IUD Age at Menarche 10 Breast Problems no If Post Menopausal, Age at Menopause 52 Date of Last Mammogram 02/17/2022 Date of Last Colonoscopy 09/11/2022 Most Recent Bone Density Sexually Active? Y Date of Last Pap Smear Discharge no Obstetrics History GPAL:G 0 P 0 0 0 0 Immunizations Vaccine Type Date Status Note Provider Nam e and Address Organization Details Recorded Time SARS-COV-2 (COVID-19) vaccine, UNSPECIFIED 2 completed Not Available [facility] 06/28/2022 05:00:35 influenza, unspecified formulation 2 completed Not Available [facility] 06/28/2022 05:00:36 Influenza, split virus, quadrivalent, preservative 0 completed Not Available [facility] 06/28/2022 05:00:36 Tdap 0 completed Not Available [facility] 06/28/2022 05:00:36 Past Encounters Encounter ID Performer Location Encounter Start Date Encounter Closed Date Diagnosis/Indication Diagnosis SNOMED-CT Code Diagnosis ICD10 Code Diagnosis Note [id number] [facility] [address] [address] 07/07/2021 00:00:00 07/07/2021 16:11:05 [id number] [facility] [address] [address] 09/16/2021 00:00:00 09/16/2021 08:40:10 [id number] [facility] [address] [address] 12/16/2021 00:00:00 12/16/2021 08:42:46 [id number] [facility] [place] [id number] [place] [address] 12/27/2021 00:00:00 12/27/2021 16:07:26 [id number] [facility] [place] [id number] [place] [address] 01/30/2022 00:00:00 01/30/2022 09:06:40 [id number] [facility] [address] [address] 03/17/2022 00:00:00 03/17/2022 09:11:48 [id number] Azeb Ch NP [facility] [address] [address] 07/14/2022 07:56:01 07/14/2022 08:30:43 Diabetes mellitus 58158370 E11.9 Glimepirid e 4 po bid. Janumet XR 50-1000 mg po bid. Lantus 40 units. Increase trulicity from 3 to 4.5 mg Essential hypertension 89691215 I10 Lisinopril 20 mg po daily. Hyperlipidemia 18875181 E78.5 Atorvastat in 40 mg po nightly. Pain of bi lateral knee joints [id number] 93807 M25.561 M25.562 celecoxib 200 mg cap po daily. Seeing ortho. Gabapentin 300 mg po nightly. Vitamin D deficiency 347 08252 E55.9 Vit d 50,000 IU po weekly. Screening for malignant neoplasm of colon 102362800 Z12.11 gastroente rology. [id number] Azeb Ch NP [address] [address] 10/13/2022 08:24:06 10/13/2022 09:05:14 Vitamin D deficiency 26443850 E55.9 Vit d 50,000 IU po weekly. Uncontroll ed type 2 diabetes mellitus 045008273 E11.65 Trulicity 4.5 mg weeklyMetf ormin ER 500 mg po bid.Jardia nce 25 mg po dailyLantu s 30 units nightly.Gl imepiride 4 mg po bid.Gabape ntin 300 mg po nightly.Ne ed to get diet on track JASEN. low carb. NO added sugar. Hyperlipidemia 27397971 E78.5 Atorvastat in 40 mg po nightly.Lo w fat diet. Essential hypertension 64418665 I10 Lisinopril 20 mg po daily. Mixed anxi ety and depressive disorder 807277247 F41.8 Paroxetine 10 mg po daily. Osteoarthr itis of knee 741891751 M17.9 seeing ortho. Meloxicam 15 mg po daily. [id number] Azeb Ch NP [address] [address] 02/02/2023 08:09:22 02/02/2023 08:55:41 Uncontrolled type 2 diabetes mellitus 532596812 E11.65 Trulicity 4.5 mg weekly (patient fill dates stopped in October 2022) May have improved results with Mounjaro or ozempic. Pt will try on ozempic if insurance covers.Met formin ER 500 mg po bid.Jardia nce 25 mg po dailyLantu s 30 units nightly.Gl imepiride 4 mg po bid.Gabape ntin 300 mg po nightly.Ne ed to get diet on track JASEN. low carb. NO added sugar. Hyperlipidemia 04597817 E78.5 Atorvastat in 40 mg po nightly.Lo w fat diet. Vitamin D deficiency 347 67289 E55.9 Vit d 50,000 IU po weekly. Essential hypertension 36310957 I10 Lisinopril 20 mg po daily. Mixed anxi ety and depressive disorder 477324669 F41.8 Paroxetine 10 mg po daily. Osteoarthr itis of knee 192278712 M17.9 seeing ortho. Meloxicam 15 mg po daily. [id number] Azeb Ch NP [facility] [address] [address] 05/04/2023 08:08:13 05/04/2023 08:59:35 Uncontrolled type 2 diabetes mellitus 834285107 E11.65 Trulicity 4.5 mg weekly (patient fill dates stopped in October 2022) May have improved results with Mounjaro or ozempic. 05/04/23 using ozempic 1 mg.Metform in ER 500 mg po bid.Jardia nce 25 mg po dailyLantu s 30 units nightly.Gl imepiride 4 mg po bid.Gabape ntin 300 mg po nightly.Ne ed to get diet on track JASEN. low carb. NO added sugar. Hyperlipidemia 81118084 E78.5 Atorvastat in 40 mg po nightly.Lo w fat diet. Vitamin D deficiency 347 19608 E55.9 Vit d 50,000 IU po weekly. Essential hypertension 94347349 I10 Lisinopril 20 mg po daily. Mixed anxi ety and depressive disorder 528148101 F41.8 Paroxetine 10 mg po daily. Osteoarthr itis of knee 726163215 M17.9 seeing ortho. Meloxicam 15 mg po daily. Pain of bi lateral knee joints 2200170111 85621 M25.561 M25.562 meloxicam 15 mg po daily. Seeing ortho Dr. Barriga. Gabapentin 300 mg po nightly. Health Concerns Section Related Observation LastModified by Organization Detai ls LastModified Time None Recorded Concern Status LastModified by Organization Details LastModified Time None Recorded Advance Directives Directive Y: Payers Encounter Date Sequence Insurance Name Policy Number Policy Summers Covered Member ID Summers Member ID Guarantor Name 07/14/2022 1 [place] [id number] Denisha Bailey [id number] Denisha Bailey 10/13/2022 1 [place] [id number] Denisha Bailey [id number] Denisha Bailey 02/02/2023 1 [place] [id number] Denisha Bailey [id number] Denisha Bailey 05/04/2023 1 [place] [id number] Denisha Bailey [id number] Denisha Bailey Notes Date Note Type Note Provider Name and Address Organization Details Recorded Time 07/14/2022 text/html Here for 3 mo fu on dm, htn, lipid, knee pain, vit d def. DM uncontrolled.- June 2022 labs A1C > 10. lost 20 lbs from this. Hasn't changed the way she is eating. Not choosing the right foods. Eating 3 meals and snacking all day. Drinking water. Was taking care of a friend and eating hospital food.Knees- Seeing ortho for knees and had cortisone shots. Has been doing PT. Still numbness and tingling in right foot. No change. Gabapentin helps her sleep at night. May be blood sugar too. Lipid- . Atorvastatin no issues.Weight- obese down from uncontrolled dm. Depression- paroxetine 10 mg po daily ok. Azeb Ch NP [address], [place], [address], [place] [facility] [employer] 07/14/2022 08:29:56 10/13/2022 text/html Here for check u p. Type II dm- not exercising. Hasn't been eating well. States she eats out a lot and doesn't follow ADA diet much if at all.Breakfast sandwich toast charles, egg, hashbrown. [employer] gyro and fries for lunch. Last night honey bbq chicken tenders. Watermelon. Drinking diet pepsi. Unsweet tea, water. Pretzels for snack at work. Working a lot of hours. [employer]- Nov.Colonoscop y ok Azeb Ch NP [address], [address], [place], [address], [employer] [facility] [employer] 10/13/2022 09:04:00 02/02/2023 text/html Here for check u p. Just had labs 01/31/23 Type II dm- Labs with A1C 9.8H.Not exercising. Hasn't been eating well. States she eats out a lot and doesn't follow ADA diet much if at all. States she is stressed all the time and eats off when stressed. States job is on the line.Lipid- Trigs high.Vit d def- Supplement daily.HTN- Pressure in head with weather change.Anxiety/dep ression- Very stressed with work.Osteoarthriti s knee- Bilateral. Vision- UTDDental- UTDMammogram scheduled 03/21/23. Azeb Ch NP [address], [address], [place], [address], [employer] [facility] [employer] 02/02/2023 08:51:52 05/04/2023 text/html Here for check u p. DM-Has been taking the ozempic and on the 1 mg dose. Has cravings at home with niece and them bringing home sweets. still stress eating. Trying to do better. Lipid- Trigs high.Vit d def- Supplement daily.HTN- goodAnxiety/depres annamarie- Very stressed with work. better as it's new year.Osteoarthriti s knee- Bilateral. Seeing Dr. Barriga. Still with knee pain bilaterally. 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 [employer] 05/04/2023 08:46:41 OBGyn Episode No OBEpisode recorded.
--- OUTSIDE RECORDS SUMMARY | 2024-05-22 08:48 | XMS_ITS | Continuity of Care Document ---
Author Organization [facility] Address [address] [place] [address] Phone Care Team Providers Care Hearing Aid Mechanic Name Role Phone Hernandez OD, Oracio Unavailable Unavailable Advance Directives Directive Yes / No Effective Date File Name No Information Encounters Encounter Description Practice Location Reason(s) For Visit Diagnoses Date Provider Providers Copied on Encounter [facility], [address] [place] [address] [address], [place], [place], [id number], [place] tel:[phone] [facility] No Information 2-200 2 Hernandez OD Oracio. [address] , [address], [place], [address], [place]. tel:[phone] Family History Family Member Type Diagnosis Age At Onset No Information Payers Payer name Insurance type Covered constitution party ID Authoriza tion(s) No Information Social History Type Description Quantity Date Captured Comments Sex Female Smoking Status No Information Chief Complaint And Reason For Visit No Information Reason For Referral Reason For Referral No Information History Of Present Illness Encounter Date Complaint History Of Prese nt Illness No Information Functional Status Date Functional Assessmen t No Information Instructions Date Instruction Additional Infor mation No Information Assessments Type Assessment Date No Information Patient Care Teams Name Effective Dates (start - stop) Status Members No Information
== END 2024-05-17 11:09 | disposition home or self-care (01) ==
PROVIDERS: Emergency Provider Preventive Medicine Aerospace Medicine; PCP Nurse Practitioner Family
DX: K04.7 Periapical abscess without sinus (principal); K11.20 Sialoadenitis, unspecified; I10 Essential (primary) hypertension; E78.5 Hyperlipidemia, unspecified; E11.40 Type 2 diabetes mellitus with diabetic neuropathy, unspecified; E78.2 Mixed hyperlipidemia; M19.90 Unspecified osteoarthritis, unspecified site; Z79.85 Long-term (current) use of injectable non-insulin antidiabetic drugs; Z79.899 Other long term (current) drug therapy; Z79.4 Long term (current) use of insulin; Z79.84 Long term (current) use of oral hypoglycemic drugs
CPT/HCPCS: 96372; 99283; J1885

== ENCOUNTER 2024-06-25 09:00 | Outpatient (RCR) | payer BC, SELFPAY | END 2024-08-12 12:27 | disposition home or self-care (01) | LOC: ANHDMC 09:00 | PROVIDERS: PCP Nurse Practitioner Family; Visit Provider Nurse Practitioner Family | DX: E11.9 Type 2 diabetes mellitus without complications (principal); E66.01 Morbid (severe) obesity due to excess calories; Z71.89 Other specified counseling | CPT/HCPCS: G0108 ==

== ENCOUNTER 2024-06-25 10:14 | Outpatient (CLI) | payer BC, SELFPAY ==
--- NOTE | ~2024-06-25 | MM_ITS ---
EXAMINATION: MM screening [facility] [place] HISTORY: Screening mammogram TECHNIQUE: Craniocaudal and mediolateral oblique 3-D tomosynthesis images were obtained and synthetic 2-D images were generated. CAD analysis was submitted and interpreted. COMPARISON: 04/20/2023, 02/17/2022, 03/18/2021, 02/13/2020 BREAST PARENCHYMAL COMPOSITION:Not Dense. There are scattered areas of fibroglandular density. FINDINGS: No suspicious mass, calcification, or architectural distortion are identified in either ed ast to suggest malignancy. There has been no suspicious interval change. IMPRESSION: No mammographic evidence of malignancy. Recommend routine screening mammography in one year. BI-RADS Category 1: Negative Reviewed, dictated and finalized at location . VALUE TESTER
== END 2024-06-25 10:15 | disposition home or self-care (01) ==
LOC: MICIMG 10:21
PROVIDERS: PCP Nurse Practitioner Family; Visit Provider Nurse Practitioner
DX: Z12.31 Encounter for screening mammogram for malignant neoplasm of breast (principal)
CPT/HCPCS: 77063; 77067

== ENCOUNTER 2024-08-20 09:52 | Outpatient (RCR) | payer BC, SELFPAY | END 2024-08-20 11:45 | disposition home or self-care (01) | LOC: ANHDMC 09:52 | PROVIDERS: Visit Provider Nurse Practitioner Family | DX: E11.9 Type 2 diabetes mellitus without complications (principal); E66.01 Morbid (severe) obesity due to excess calories; Z71.3 Dietary counseling and surveillance | CPT/HCPCS: G0108 ==

== ENCOUNTER 2025-04-25 15:23 | Emergency (ER) | payer BC, SELFPAY ==
--- NOTE | ~2025-04-25 | XR_ITS ---
EXAMINATION: XR hip RT 2V w AP pelvis DATE: 04/25/2025 17:44 INDICATION: Pain. No history of trauma. TECHNIQUE: Pelvis and 2 views of right hip. were obtained. COMPARISON: None. FINDINGS: No acute bony lesions of pelvis and right hip. Mild osteoarthritis of both hip joints and sacroiliac joints. Soft tissues are unremarkable. IMPRESSION: 1. No acute findings. Mild osteoarthritis of both hips and SI joints. Reviewed, dictated and finalized at location T. TYPE FINISHER
[2025-04-25 15:38] VITALS: BP 161/97; PULSE 109; RESP 17; TEMP 36.8; O2SAT 98
--- NOTE | 2025-04-25 16:27 | ED_ITS ---
HPI - General Adult General Chief complaint: Extremity Problem,Nontraumatic Stated complaint: sciatica pain Time Seen by Provider: 04/25/25 16:12 History of Present Illness HPI narrative: 55-year-old female with history of morbid obesity presents to the emergency department with right hip buttock pain. Patient states about a week ago she was bending over to lift some groceries and felt a pop insert having some pain. He is getting mildly better and then today when she went to step up in the car hurt her significantly. She denies any paresthesias. Denies any shooting pain on the back of her legs, no bowel or bladder incontinence. Painful joints. No fevers or chills Related Data Allergies Allergy/AdvReac Type Severity Reaction Status Date / Time cefaclor Allergy Unknown Unknown Verified 04/25/25 15:38 Penicillins Allergy Unknown Unknown Verified 04/25/25 15:38 Review of Systems Review of Systems: All systems reviewed & are unremarkable except as noted in HPI and below PMFSH Past Medical History Medical History Hyperlipidemia Osteoarthritis Neuropathy Diabetes mellitus HTN (hypertension) Benign essential hypertension Depression Mixed hyperlipidemia Type 2 diabetes mellitus without complication, without long-term current use of insulin Surgical History Surgical History History of tonsillectomy H/O removal of cyst Family History Family History Mother Family history of diabetes mellitus in first degree relative Family history of seizure disorder Hypertension Heart disease Hypothyroidism Father Family history of diabetes mellitus in first degree relative Family history of heart disease in male family member before age 55 Sibling Diabetes mellitus Depression Grandparent Diabetes mellitus Social History Social History Social History: 08/21/24 very confident with medical forms 12/17/24 Patient declined SDOH Smoking status: Never smoker Alcohol intake: current Drinks per week: 3 Alcohol use details: occasional Substance use: never Substance use type: does not use Lack of Transportation: No Lack of Food: Never True Current Housing: I Have Housing Concerned About Future Housing: No Difficulty Paying Gas/Electric Bills: No Difficulty Paying for Meds: No Currently Unemployed: No Education: High School Diploma/GED Difficulty w/ Childcare or Family Care: No Living arrangements: alone Occupation/Education: occupation 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 EYES: EOMI, conjunctiva normal ENT: Hearing grossly intact LUNGS: Nonlabored breathing. HEART: [Regular rate and rhythm] EXT: patient has point tenderness the right hip. There is no foreshortening distal pulses are 2+ muscle compartments are soft. Patient has full passive range of motion however external rotation does elicit pain no atrophy. Sensa tion intact throughout. SKIN: [No rashes or lesions.] NEURO: [Alert. No gross focal sensory or strength deficits.] PSYCH: Normal affect Course Vital Signs Vital signs: Vital Signs Temperature 36.8 C 04/25/25 15:38 Pulse Rate 109 H 04/25/25 15:38 Respiratory Rate 17 04/25/25 15:38 Blood Pressure 161/97 H 04/25/25 15:38 Pulse Oximetry 98 04/25/25 15:38 Oxygen Delivery Room Air 04/25/25 15:38 Temperature 36.8 C 04/25/25 15:38 Pulse Rate 109 H 04/25/25 15:38 Respiratory Rate 17 04/25/25 15:38 Blood Pressure 161/97 H 04/25/25 15:38 Pulse Oximetry 98 04/25/25 15:38 Oxygen Delivery Room Air 04/25/25 15:38 MDM Differential Diagnosis Differential Diagnosis: 55-year-old female presents with atraumatic hip pain. The differential is musculoskeletal injury versus osteoarthritis versus much less likely pathological fracture. Did obtain baseline imaging which is negative for any osseous injury she was treated for pain which did improve. I will give her referral to Orthopedic surgery as I suspect this is either osteo arthritis versus a possible ligamentous injury. Also send her home with a short course prescription for NSAIDs and short course prescription for [place] for breakthrough pain. Otherwise all questions answered return precautions discussed discharged in fair condition Imaging Data Attestation: I personally reviewed and interpreted this imaging study as follows: My impression: no osseous abnormalities noted Radiologist's impression: ITS Impressions Hip/Pelvis X-Ray 04/25/25 17:45 IMPRESSION: 1. No acute findings. Mild osteoarthritis of both hips and SI joints. Discharge Plan Discharge Clinical Impression: Muscle strain Osteoarthritis Qualifiers: Osteoarthritis location: multiple joints Osteoarthritis type: primary Qualified Code(s): M15.9 - Polyosteoarthritis, unspecified Patient Disposition: Home Condition: Stable Instructions: Muscle Strain (DC), Osteoarthritis (ED) Patient Language: Kazakh Prescriptions: New ketorolac 10 mg tablet 10 mg PO Q8H 5 Days Qty: 15 5RF Rx Instructions: maximum total duration of 5 days from all oral, intranasal, or parenteral formulations hydrocodone-acetaminophen 5-325 mg tablet 1 tablet PO Q8H PRN (Reason: pain) Qty: 14 0RF No Action (DME) pen needle, diabetic [Easy Comfort Pen [place]] 31 gauge x 1/4 needle See Rx Instructions .ROUTE .MEDSUPPLY Qty: 300 3RF Rx Instructions: Use with insulin 4 times a day Gvoke HypoPen 2-Pack 1 mg/0.2 mL auto-injector 1 mg subcut ONCE Qty: 0.4 4RF Rx Instructions: may repeat once after 15 minutes if no response glucose [Dex4 Glucose] 4 gram tablet,chewable 16 g PO Q15M PRN (Reason: hypoglycemia) Qty: 60 1RF Rx Instructions: until symptoms of low blood sugar are controlled (DME) Skin Prep Wipes Misc See Rx Instructions .Route Qty: 50 1RF Rx Instructions: As directed insulin lispro [Humalog KwikPen Insulin] 100 unit/mL insulin pen 16 unit subcut TIDWMEAL MDD 90 Qty: 45 2RF Rx Instructions: Novolog 16 units premeal + SSI 150-175: 1 unit 176-200: 2 units 201-225: 3 units 226-250: 4 units 251-275: 5 units 276-300: 6 units 301-325: 7 units 326-350: 8 units 351-375: 9 units 376-400: 10 units >401: 11 units metformin 500 mg tablet extended release 24 hr 1,000 mg PO BID Qty: 360 1RF (DME) FreeStyle Fiordaliza 3 Plus Sensor Device See Rx Instructions .ROUTE .MEDSUPPLY Qty: 6 2RF Rx Instructions: Use to monitor glucose (DME) blood-glucose meter [OneTouch Verio Flex meter] [facility] See Rx Instructions .Route Qty: 1 0RF Rx Instructions: As directed (DME) OneTouch Verio test strips Strip See Rx Instructions .Route Qty: 400 2RF Rx Instructions: Check glucose 3-4 times a day (DME) lancing device with lancets [OneTouch Delica Plus Lanc Dev] Kit See Rx Instructions .Route Qty: 1 0RF Rx Instructions: As directed (DME) lancets [OneTouch Delica Plus Lancet] 33 gauge misc See Rx Instructions .ROUTE .MEDSUPPLY Qty: 100 0RF Rx Instructions: Check glcuose lisinopril 20 mg tablet 20 mg PO DAILY Qty: 90 1RF Jardiance 25 mg tablet 25 mg PO DAILY Qty: 90 1RF Ozempic 2 mg/dose (8 mg/3 mL) pen injector 2 mg SUBCUT WEEKLY Qty: 9 0RF paroxetine HCl 10 mg tablet 10 mg PO DAILY Qty: 90 1RF Lantus Solostar U-100 Insulin 100 unit/mL (3 mL) insulin pen 40 unit SUB-Q DAILY Qty: 45 1RF Patient Comments: takes 30units at bedtime meloxicam 15 mg tablet 15 mg PO DAILY Qty: 90 1RF gabapentin 300 mg capsule 300 mg PO DAILY Qty: 90 1RF rosuvastatin 40 mg tablet 40 mg PO DAILY Qty: 90 1RF cyclobenzaprine 10 mg tablet 10 mg PO QHS PRN (Reason: muscle spasm) Qty: 10 0RF Follow-up/Referrals: Azeb Kelley APRN [Primary Care Provider, Family Practice] Julian Santiago MD [Physician, Orthopedics] - 1 Week Time of Disposition: 18:07
[2025-04-25] MEDS: HYDROcodone/acetaminophen (*CRX) 5-325 MG TABLET 1 TAB PO (17:20)
[2025-04-25] MEDS: KETOROLAC 30 MG/ML VIAL (*BKC) IM (17:21)
== END 2025-04-25 18:15 | disposition home or self-care (01) ==
PROVIDERS: Emergency Provider Emergency Medicine; PCP Nurse Practitioner Family
DX: S76.011A Strain of muscle, fascia and tendon of right hip, initial encounter (principal); M16.0 Bilateral primary osteoarthritis of hip; M46.1 Sacroiliitis, not elsewhere classified; I10 Essential (primary) hypertension; E11.40 Type 2 diabetes mellitus with diabetic neuropathy, unspecified; E78.5 Hyperlipidemia, unspecified; E66.01 Morbid (severe) obesity due to excess calories; Z68.43 Body mass index [BMI] 50.0-59.9, adult; E78.2 Mixed hyperlipidemia; F32.A Depression, unspecified; Z79.4 Long term (current) use of insulin; Z79.84 Long term (current) use of oral hypoglycemic drugs; Z79.899 Other long term (current) drug therapy; Z79.85 Long-term (current) use of injectable non-insulin antidiabetic drugs; X50.0XXA Overexertion from strenuous movement or load, initial encounter
CPT/HCPCS: 73502; 96372; 99283; A9270; J1885